=== PATIENT | female | born 1940 | race Caucasian/White ===

== ENCOUNTER 2018-02-02 09:29 | Day surgery (SDC) | payer MEDICARE ==
[2018-01-29 13:14] VITALS: BMI 26.4
[~2018-02-02 09:29] MED LIST: LACTATED RINGERS 1,000 ML IV SCH
[2018-02-02 10:06] VITALS: TEMP 97.7
[2018-02-02] MEDS ORDERED: LIDOCAINE 1% 20 ML VIAL (10MG/ML) FOR IV START INTRADERMA ONE (10:22)
[2018-02-02] MEDS ORDERED: LIDOCAINE 1% INJ 10MG/ML (20 ML MDV) ONE (11:07)
[2018-02-02] MEDS ORDERED: PROPOFOL 10 MG/ML 20 ML VIAL IV ONE (11:07)
--- NOTE | 2018-02-02 11:49 | P.PCN ---
Date of Procedure: 02/02/18 Procedure(s) Performed: Procedure: Colonoscopy and biopsy. Preoperative diagnosis: Screening for neoplasia. Postoperative diagnosis: 1. Sigmoid diverticulosis with no evidence of acute diverticulitis or strictures. 2. No polyps or tumors seen. 3. Mild nonspecific mucosal changes in the sigmoid biopsies obtained. Preparation: HalfLytely prep. Sedation: Was provided by anesthesia. Brief clinical history: The patient is a 78-year-old female who is scheduled for this evaluation for screening for neoplasia. Her last colonoscopy was in June 2013. 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 On her last colonoscopy she had sigmoid diverticulosis with no evidence of active inflammation in her colon and her biopsies from the right colon and sigmoid were normal. The patient is currently doing well and continues to be on Lialda 1.2 g 3 a day. Procedure: With the patient on her left lateral decubitus position and after informed consent and adequate sedation, the perianal area was inspected and it did not show any fissures or fistulas. There were no masses felt on digital rectal examination. The Olympus CFQ 160L video colonoscope was then inserted in the rectum in the usual fashion and advanced to the cecum. There were multiple diverticular orifices seen scattered in the sigmoid with no evidence of acute diverticulitis or strictures. The sigmoid distal to 45 or 50 cm showed erythema and friability but there were no ulcerations, exudation is or spontaneous bleeding. No polyps or tumors were seen. I obtained random biopsies in the sigmoid then I retroflexed the endoscope in the rectum before the endoscope was withdrawn. The patient tolerated the procedure well. Plan: The patient was reassured. She will follow-up in the office as planned and further plans will be made based on her course and biopsy results. Consideration will be given for futures screening for neoplasia based on her overall health. She will follow-up with you as planned.
[2018-02-02 12:03] VITALS: BP 120/76; PULSE 84; RESP 18
== END 2018-02-02 12:22 | disposition home or self-care (01) ==
LOC: ORWHC2ENDO 09:29
DX: Z12.11 Encounter for screening for malignant neoplasm of colon (principal); K52.9 Noninfective gastroenteritis and colitis, unspecified; K51.90 Ulcerative colitis, unspecified, without complications; I25.2 Old myocardial infarction; I25.10 Atherosclerotic heart disease of native coronary artery without angina pectoris; J44.9 Chronic obstructive pulmonary disease, unspecified; I11.9 Hypertensive heart disease without heart failure; K21.9 Gastro-esophageal reflux disease without esophagitis; K57.30 Diverticulosis of large intestine without perforation or abscess without bleeding; Z88.2 Allergy status to sulfonamides; Z88.8 Allergy status to other drugs, medicaments and biological substances; Z87.891 Personal history of nicotine dependence; Z79.82 Long term (current) use of aspirin; Z79.899 Other long term (current) drug therapy
CPT/HCPCS: 88305; 45380; J2001; J2704

== ENCOUNTER 2022-03-27 11:20 | Emergency (ER) | payer MEDICARE ==
[2022-03-27 12:08] VITALS: BP 123/67; PULSE 87; RESP 18; TEMP 97.7
[2022-03-27 12:36] LABS: Basophils % (A) 1 %; Eosinophils # (A) 0.6 k/uL (0-0.7); Eosinophils % (A) 10 %; HCT 36.6 % (34.0-46.0); HGB 11.6 gm/dL (11.4-16.0); Lymphocytes % (A) 16 %; MCH 31.4 pg (25.0-35.0); MCHC 31.7 g/dL (31.0-37.0); Macrocytosis Slight; Mean Platelet Volume 6.6; Monocytes # (A) 0.5 k/uL (0-1.0); Monocytes % (A) 7 %; Neutrophils # (A) 4.2 k/uL (1.3-7.7); Neutrophils % (A) 65 %; Platelet Count 718 k/uL (150-450); RBC 3.69 m/uL (3.80-5.40); RDW 14.9 % (11.5-15.5); WBC 6.5 k/uL (3.8-10.6)
[2022-03-27 12:45] LABS: ALT 15 U/L (4-34); AST 21 U/L (14-36); African American GFR (CKD) >90 (>60 ml/min/1.73 sqM); Albumin 3.3 g/dL (3.5-5.0); Alkaline Phosphatase 95 U/L (38-126); Anion Gap 5 mmol/L; Blood Urea Nitrogen 11 mg/dL (7-17); Calcium 8.2 mg/dL (8.4-10.2); Carbon Dioxide 30 mmol/L (22-30); Chloride 96 mmol/L (98-107); Glucose 119 mg/dL (74-99); Non-African American GFR(CKD) 82 (>60 ml/min/1.73 sqM); Potassium 4.2 mmol/L (3.5-5.1); Sodium 131 mmol/L (137-145); Total Bilirubin 0.6 mg/dL (0.2-1.3); Total Protein 6.1 g/dL (6.3-8.2)
[2022-03-27] MEDS ORDERED: SODIUM CHLORIDE 0.9% 1,000 ML IV STA (14:11)
[2022-03-27] MEDS ORDERED: ONDANSETRON 4 MG/2 ML VIAL IVP STA (14:11)
[2022-03-27] MEDS ORDERED: MORPHINE SULFATE 2 MG/ML SYRINGE IVP STA (14:11)
--- NOTE | 2022-03-27 15:10 | CT ---
EXAMINATION TYPE: CT abdomen pelvis w con DATE OF EXAM: 03/27/2022 COMPARISON: None available HISTORY: abdominal pain/tenderness CT DLP: 617.3 mGycm Automated exposure control for dose reduction was used. TECHNIQUE: Helical acquisition of images was performed from the lung bases through the pelvis. CONTRAST: Performed without Oral Contrast and with IV Contrast, patient injected with 100 mL of Isovue 300. FINDINGS: LUNG BASES: No significant abnormality is appreciated. LIVER/GB: Previous cholecystectomy. Dilated central intrahepatic biliary tree and CBD, probably relat ed to postcholecystectomy status, please correlate with bilirubin level. No definite suspicious hepat ic focal lesion identified. PANCREAS: No significant abnormality is seen. SPLEEN: No significant abnormality is seen. ADRENALS: No significant abnormality is seen. KIDNEYS: Scattered bilateral renal hypodensities likely representing renal cysts, otherwise unremarka ble kidneys. FREE AIR: No free air is visualized. RETROPERITONEAL ADENOPATHY: None visualized REPRODUCTIVE ORGANS: No gross uterine or adnexal mass. URINARY BLADDER: Nondistended. PELVIC ADENOPATHY: No pathologically enlarged pelvic lymph nodes. OSSEOUS STRUCTURES: Osteopenia. Degenerative changes of the lower thoracic and lower lumbar spine. BOWEL: Nondistended gastric fundus. Grossly unremarkable duodenum. Segments of mild nonspecific smal l bowel dilatation, seen in the pelvis. No convincing evidence for acute high-grade small bowel obstr uction. Diffuse wall thickening of the rectum, sigmoid colon and descending colon with surrounding fa t stranding and acute inflammatory changes. No significant wall thickening of the transverse colon or the right hemicolon. This may suggest acute colitis. Fecal loading of the transverse colon and right hemicolon. OTHER: Arterial atherosclerotic calcifications. No sizable ascites. Diffuse muscular wasting. IMPRESSION: Findings are highly suggestive of acute colitis of the descending colon, sigmoid colon and rectum as described above. The underlying etiology could be inflammatory, infectious or pseudomembranous. Ische marisela colitis cannot be excluded. Recommend clinical correlation and further workup. Other findings as described above.
[2022-03-27 15:12] LABS: INR 0.9 (<1.2); Prothrombin Time 10.1 sec (9.0-12.0)
[2022-03-27] MEDS ORDERED: AMOXIC-POT CLAV 875-125MG 1 EACH TAB PO STA (15:22)
--- NOTE | 2022-03-27 15:24 | ED ---
General Adult HPI - General Chief complaint: GI Bleed Stated complaint: colitis, blood in stool Time Seen by Provider: 03/27/22 13:57 Source: patient, RN notes reviewed, old records reviewed Mode of arrival: wheelchair Limitations: no limitations - History of Present Illness Initial comments: Patient is a 52-year-old female with past medical history remarkable for CAD, COPD, hypertension, MIs, chronic colitis who recently has been noncompliant with medication presents emergency Department complaining of intermittent blood in her stool as well as a small amount of abdominal pain which is typical for her colitis. States that there is small amount of bright red blood as well as dark blood in her stool. Last occurred yesterday. Symptoms have overall occurred over the last 2 weeks. She is been off her maintenance medication for her colitis. She is not follow-up with her GI doctor in quite some times. Last received a colonoscopy 1 years ago. Endorses mild nausea, but denies any vomiting. Denies any chest pain, shortness breath. His no other acute complaints at this time. Presents for further evaluation. Is not on blood thinners. - Related Data Home Medications Medication Instructions Recorded Confirmed Aspirin 81 mg PO HS 02/14/16 02/02/18 Budesonide-Formot 160-4.5 Mcg 2 puff INHALATION BID 02/14/16 02/02/18 [Symbicort 160-4.5 Mcg Inhaler] Famotidine [Pepcid] 20 mg PO DAILY PRN 02/14/16 02/02/18 Mesalamine [Lialda] 1.2 gm PO TID 02/14/16 02/02/18 carvediloL [Coreg] 3.125 mg PO BID 02/14/16 02/02/18 Albuterol Inhaler [Ventolin Hfa 1 - 2 puff INHALATION Q6HR PRN 01/29/18 02/02/18 Inhaler] Cholecalciferol [Vitamin D3] 1,000 unit PO Q24H 01/29/18 02/02/18 Glucosam/Kareem-Msm1/C/Rafael/Bosw 1 each PO Q24H 01/29/18 02/02/18 [Glucosamine-Chondroitin Tablet] Ipratropium-Albuterol Nebulize 3 ml INHALATION QID 01/29/18 02/02/18 [Duoneb 0.5 mg-3 mg/3 ml Soln] Losartan [Cozaar] 25 mg PO HS 01/29/18 02/02/18 [place]kee-3 Fatty Acids/Fish Oil [Fish 1 each PO HS PRN 01/29/18 02/02/18 Oil 1,000 mg Softgel] Simvastatin [Zocor] 20 mg PO HS 01/29/18 02/02/18 Previous Rx's Medication Instructions Recorded Amoxic-Pot Clav 875-125Mg 1 tab PO Q12HR 7 Days #14 tab 03/27/22 [Augmentin 875-125] Allergies Allergy/AdvReac Type Severity Reaction Status Date / Time niacin Allergy Itching Verified 03/27/22 12:08 Sulfa (Sulfonamide Allergy Anaphylaxis Verified 03/27/22 12:08 Antibiotics) diphenhydramine HCl AdvReac Itching Verified 03/27/22 12:08 [From Benadryl] Review of Systems ROS Statement: Those systems with pertinent positive or pertinent negative responses have been documented in the HPI. Review of Systems: CONST: Denies fever EYES: Denies blurry vision ENT: Denies nasal congestion C/V: Denies Chest pain RESP: Denies shortness of breath GI: Endorses chronic abdominal pain. : Denies dysuria SKIN: Denies rash. MSK: Denies joint pain. NEURO: Denies headache ROS Other: All systems not noted in ROS Statement are negative. Past Medical History Past Medical History: Coronary Artery Disease (CAD), COPD, GERD/Reflux, Hypertension, Myocardial Infarction (VT) Additional Past Medical History / Comment(s): CARDIOMYOPATHY. ULCERATIVE COLITIS Last Myocardial Infarction Date:: 07/12/2013 History of Any Multi-Drug Resistant Organisms: None Reported Past Surgical History: Appendectomy, Cholecystectomy, Heart Catheterization, Tonsillectomy, Tubal Ligation Additional Past Surgical History / Comment(s): COLONOSCOPY X3. BILAT CATARACTS REMOVED Past Anesthesia/Blood Transfusion Reactions: No Reported Reaction Past Psychological History: No Psychological Hx Reported Past Alcohol Use History: Occasional Past Drug Use History: None Reported - Past Family History Mother Family Medical History: Myocardial Infarction (VT) General Exam - General Exam Comments Initial Comments: General: Appears in no acute distress. HEAD: Normal with no signs of head trauma. EYES: PERRLA, EOMI, conjunctiva normal, no discharge. ENT: Hearing grossly intact, normal oropharynx. RESPIRATORY: Clear breath sounds bilaterally. No wheezes, rales, or rhonchi. C/V: Regular rate and rhythm. S1 and S2 auscultated, no edema, peripheral pulses 2+ and intact throughout ABD: Abdomen soft, nondistended. Mildly tender to palpation, primarily in the left lower quadrant. Rectal exam performed in the presence of a female staff member. Relatively unremarkable. No gross blood. Good rectal tone. Uncomplicated external hemorrhoid. EXT: Normal range of motion, no obvious deformity SKIN: No rashes or lesions observed on exposed skin. NEURO: Alert and oriented 4. Limitations: no limitations Course Vital Signs 03/27/22 12:03 Temperature 97.7 F Pulse Rate 87 Respiratory 18 Rate Blood Pressure 123/67 O2 Sat by Pulse 99 Oximetry Medical Decision Making - Medical Decision Making Based on the patient's presentation and physical exam, I do suspect she is likely experiencing acute on chronic abdominal pain from her history of colitis. Cannot rule out new cause for the pain, particularly with the focal tenderness to left lower quadrant. She is been noncompliant with medications which could be the cause. Workup was already started while the patient was in triage. Hemoglobin is 11.6. Platelet count is slightly elevated 718. She is a mild hyponatremia of 131 and hypochloremia 96. Troponin is undetectable. Occult blood was sent and is negative. I did discuss with her that I would like to obtain a computed tomography scan to rule out diverticulitis or other, acute factor, which she was in agreement with. She was given symptomatic treatment. CT imaging revealed her known colitis with no other complicating factor. I discussed with her at length this is likely secondary to her being noncompliant with her maintenance medications which she will restart. She has her prescription at home. As this was new in onset, she will be given antibiotics to rule out inflammatory cause, however has no other signs. Will be started on Augmentin. She was in agreement this plan. We'll follow up with her PCP. Also follow-up with GI. She would like to go home I think this is reasonable. Patient's vital signs remained within normal limits and stable throughout his stay. There is no sign of life-threatening bleed at this point. I believe she can go home without issue. She was in agreement this plan. I will provide the patient with a prescription for Augmentin. I instructed the patient to follow up with their PCP in the next 3 days. I explained that the patient should return to the emergency department if they experience any worsening symptoms. Strict return precautions were discussed with the patient. The patient expressed understanding of these instructions. I answered all questions that the patient had. The patient was discharged home in good condition with their prescriptions and follow up information. - Lab Data Result diagrams: 03/27/22 12:15 03/27/22 12:15 Lab Results 03/27/22 03/27/22 03/27/22 Range/Units 12:15 12:15 12:15 WBC 6.5 (3.8-10.6) k/uL RBC 3.69 L (3.80-5.40) m/uL Hgb 11.6 (11.4-16.0) gm/dL Hct 36.6 (34.0-46.0) % MCV 99.0 (80.0-100.0) fL MCH 31.4 (25.0-35.0) pg MCHC 31.7 (31.0-37.0) g/dL RDW 14.9 (11.5-15.5) % Plt Count 718 H (150-450) k/uL MPV 6.6 Neutrophils % 65 % Lymphocytes % 16 % Monocytes % 7 % Eosinophils % 10 % Basophils % 1 % Neutrophils # 4.2 (1.3-7.7) k/uL Lymphocytes # 1.0 (1.0-4.8) k/uL Monocytes # 0.5 (0-1.0) k/uL Eosinophils # 0.6 (0-0.7) k/uL Basophils # 0.0 (0-0.2) k/uL Macrocytosis Slight PT (9.0-12.0) sec INR (<1.2) APTT (22.0-30.0) sec Sodium 131 L (137-145) mmol/L Potassium 4.2 (3.5-5.1) mmol/L Chloride 96 L (98-107) mmol/L Carbon Dioxide 30 (22-30) mmol/L Anion Gap 5 mmol/L BUN 11 (7-17) mg/dL Creatinine 0.70 (0.52-1.04) mg/dL Est GFR (CKD-EPI)AfAm >90 (>60 ml/min/1.73 sqM) Est GFR (CKD-EPI)NonAf 82 (>60 ml/min/1.73 sqM) Glucose 119 H (74-99) mg/dL Calcium 8.2 L (8.4-10.2) mg/dL Total Bilirubin 0.6 (0.2-1.3) mg/dL AST 21 (14-36) U/L ALT 15 (4-34) U/L Alkaline Phosphatase 95 (38-126) U/L Troponin I <0.012 (0.000-0.034) ng/mL Total Protein 6.1 L (6.3-8.2) g/dL Albumin 3.3 L (3.5-5.0) g/dL Stool Occult Blood (Negative) 03/27/22 03/27/22 Range/Units 14:35 14:35 WBC (3.8-10.6) k/uL RBC (3.80-5.40) m/uL Hgb (11.4-16.0) gm/dL Hct (34.0-46.0) % MCV (80.0-100.0) fL MCH (25.0-35.0) pg MCHC (31.0-37.0) g/dL RDW (11.5-15.5) % Plt Count (150-450) k/uL MPV Neutrophils % % Lymphocytes % % Monocytes % % Eosinophils % % Basophils % % Neutrophils # (1.3-7.7) k/uL Lymphocytes # (1.0-4.8) k/uL Monocytes # (0-1.0) k/uL Eosinophils # (0-0.7) k/uL Basophils # (0-0.2) k/uL Macrocytosis PT 10.1 (9.0-12.0) sec INR 0.9 (<1.2) APTT 26.0 (22.0-30.0) sec Sodium (137-145) mmol/L Potassium (3.5-5.1) mmol/L Chloride (98-107) mmol/L Carbon Dioxide (22-30) mmol/L Anion Gap mmol/L BUN (7-17) mg/dL Creatinine (0.52-1.04) mg/dL Est GFR (CKD-EPI)AfAm (>60 ml/min/1.73 sqM) Est GFR (CKD-EPI)NonAf (>60 ml/min/1.73 sqM) Glucose (74-99) mg/dL Calcium (8.4-10.2) mg/dL Total Bilirubin (0.2-1.3) mg/dL AST (14-36) U/L ALT (4-34) U/L Alkaline Phosphatase (38-126) U/L Troponin I (0.000-0.034) ng/mL Total Protein (6.3-8.2) g/dL Albumin (3.5-5.0) g/dL Stool Occult Blood Negative (Negative) Disposition Clinical Impression: Colitis Disposition: HOME SELF-CARE Condition: Good Instructions (If sedation given, give patient instructions): Colitis (ED) Prescriptions: Amoxic-Pot Clav 875-125Mg [Augmentin 875-125] 1 tab PO Q12HR 7 Days #14 tab Is patient prescribed a controlled substance at d/c from ED?: No Referrals: Brittany Solis MD [Primary Care Provider] - 1-2 days Stephania Piedra MD [STAFF PHYSICIAN] - 1-2 days Time of Disposition: 15:20
== END 2022-03-27 16:00 | disposition home or self-care (01) ==
LOC: EC 11:20
DX: K52.9 Noninfective gastroenteritis and colitis, unspecified (principal); E87.1 Hypo-osmolality and hyponatremia; E87.8 Other disorders of electrolyte and fluid balance, not elsewhere classified; J44.9 Chronic obstructive pulmonary disease, unspecified; K21.9 Gastro-esophageal reflux disease without esophagitis; I10 Essential (primary) hypertension; I25.2 Old myocardial infarction; I25.10 Atherosclerotic heart disease of native coronary artery without angina pectoris; Z88.2 Allergy status to sulfonamides; Z88.8 Allergy status to other drugs, medicaments and biological substances; Z79.899 Other long term (current) drug therapy; Z79.51 Long term (current) use of inhaled steroids; Z79.82 Long term (current) use of aspirin
CPT/HCPCS: 36415; 80053; 84484; 85025; 85610; 85730; 82272; 74177; 99284; 96374; 96375; 96361; J2405; J2270; Q9967

== ENCOUNTER 2022-04-28 09:53 | Inpatient (IN) | payer MEDICARE ==
[2022-04-28] MEDS ORDERED: FAMOTIDINE 20 MG/2 ML VIAL IV STA (10:05)
--- NOTE | 2022-04-28 10:46 | ED ---
GI Bleed HPI - General Chief complaint: GI Bleed Stated complaint: vomiting, diarrhea Time Seen by Provider: 04/28/22 10:01 Source: patient, family, RN notes reviewed Mode of arrival: ambulatory Limitations: no limitations - History of Present Illness Initial comments: 82-year-old female who states she does have a history of colitis who states for about 4 week she's had intermittent episodes of blood per rectum last couple days she's had bright red blood per rectum. She does have lower abdominal discomfort crampy in nature she also has had nausea vomiting decreased oral intake. No overt fevers chills sweats. No dysuria no hematuria. She does feel lightheaded and dizzy when she gets up to walk. MD complaint: blood streaked stool, gross hematochezia - Related Data Home Medications Medication Instructions Recorded Confirmed Aspirin 81 mg PO HS 02/14/16 02/02/18 Budesonide-Formot 160-4.5 Mcg 2 puff INHALATION BID 02/14/16 02/02/18 [Symbicort 160-4.5 Mcg Inhaler] Famotidine [Pepcid] 20 mg PO DAILY PRN 02/14/16 02/02/18 Mesalamine [Lialda] 1.2 gm PO TID 02/14/16 02/02/18 carvediloL [Coreg] 3.125 mg PO BID 02/14/16 02/02/18 Albuterol Inhaler [Ventolin Hfa 1 - 2 puff INHALATION Q6HR PRN 01/29/18 02/02/18 Inhaler] Cholecalciferol [Vitamin D3] 1,000 unit PO Q24H 01/29/18 02/02/18 Glucosam/Kareem-Msm1/C/Rafael/Bosw 1 each PO Q24H 01/29/18 02/02/18 [Glucosamine-Chondroitin Tablet] Ipratropium-Albuterol Nebulize 3 ml INHALATION QID 01/29/18 02/02/18 [Duoneb 0.5 mg-3 mg/3 ml Soln] Losartan [Cozaar] 25 mg PO HS 01/29/18 02/02/18 [place]-3 Fatty Acids/Fish Oil [Fish 1 each PO HS PRN 01/29/18 02/02/18 Oil 1,000 mg Softgel] Simvastatin [Zocor] 20 mg PO HS 01/29/18 02/02/18 Previous Rx's Medication Instructions Recorded Amoxic-Pot Clav 875-125Mg 1 tab PO Q12HR 7 Days #14 tab 03/27/22 [Augmentin 875-125] Allergies Allergy/AdvReac Type Severity Reaction Status Date / Time niacin Allergy Itching Verified 04/28/22 09:58 Sulfa (Sulfonamide Allergy Anaphylaxis Verified 04/28/22 09:58 Antibiotics) diphenhydramine HCl AdvReac Itching Verified 04/28/22 09:58 [From Benadryl] Review of Systems ROS Statement: Those systems with pertinent positive or pertinent negative responses have been documented in the HPI. ROS Other: All systems not noted in ROS Statement are negative. Past Medical History Past Medical History: Coronary Artery Disease (CAD), COPD, GERD/Reflux, Hypertension, Myocardial Infarction ([place]) Additional Past Medical History / Comment(s): CARDIOMYOPATHY. ULCERATIVE COLITIS Last Myocardial Infarction Date:: 07/12/2013 History of Any Multi-Drug Resistant Organisms: None Reported Past Surgical History: Appendectomy, Cholecystectomy, Heart Catheterization, Tonsillectomy, Tubal Ligation Additional Past Surgical History / Comment(s): COLONOSCOPY X3. BILAT CATARACTS REMOVED Past Anesthesia/Blood Transfusion Reactions: No Reported Reaction Past Psychological History: No Psychological Hx Reported Smoking Status: Former smoker Past Alcohol Use History: Occasional Past Drug Use History: None Reported - Past Family History Mother Family Medical History: Myocardial Infarction ([place]) General Exam - General Exam Comments Initial Comments: This is a well-developed frail-appearing female who is awake alert oriented 4 Limitations: no limitations General appearance: alert, in no apparent distress Head exam: Present: atraumatic, normocephalic, normal inspection Eye exam: Present: normal appearance, PERRL, EOMI. Absent: scleral icterus, conjunctival injection, periorbital swelling ENT exam: Present: mucous membranes dry Neck exam: Present: normal inspection. Absent: tenderness, meningismus, lymphadenopathy Respiratory exam: Present: normal lung sounds bilaterally. Absent: respiratory distress, wheezes, rales, rhonchi, stridor Cardiovascular Exam: Present: regular rate, normal rhythm, normal heart sounds. Absent: systolic murmur, diastolic murmur, rubs, gallop, clicks GI/Abdominal exam: Present: soft, tenderness (Mild nonspecific tenderness to palpation no guarding rebound masses or bruits), normal bowel sounds. Absent: distended, guarding, rebound, rigid Rectal exam: Present: normal inspection, heme (+) stool ([place] colored blood on my glove during the rectal exam. No masses) Extremities exam: Present: normal inspection, full ROM, normal capillary refill. Absent: tenderness, pedal edema, joint swelling, calf tenderness Back exam: Present: normal inspection Neurological exam: Present: alert, oriented X3, CN II-XII intact Psychiatric exam: Present: normal affect, normal mood Skin exam: Present: warm, dry, intact, normal color. Absent: rash Course Vital Signs 04/28/22 04/28/22 04/28/22 09:55 11:50 14:00 Temperature 98.2 F Pulse Rate 94 80 67 Respiratory 18 18 18 Rate Blood Pressure 117/64 115/103 115/78 O2 Sat by Pulse 96 98 97 Oximetry - Reevaluation(s) Reevaluation #1: 04/28/22 15:21 I did discuss the findings with the patient and family members we did discuss options the patient prefer to stay in this facility if possible. I did discuss the case with Dr. Sierra who is agreed to accept the patient Medical Decision Making - Medical Decision Making Again I did discuss findings with the patient family patient will be admitted for IV hydration and assessment. IV antibiotics will be initiated. - Lab Data Result diagrams: 04/28/22 10:28 04/28/22 10:28 Lab Results 04/28/22 04/28/22 04/28/22 Range/Units 10:28 10:28 10:28 WBC 11.6 H (3.8-10.6) k/uL RBC 3.60 L (3.80-5.40) m/uL Hgb 11.1 L (11.4-16.0) gm/dL Hct 35.2 (34.0-46.0) % MCV 97.8 (80.0-100.0) fL MCH 31.0 (25.0-35.0) pg MCHC 31.7 (31.0-37.0) g/dL RDW 13.9 (11.5-15.5) % Plt Count 829 H (150-450) k/uL MPV 7.4 Neutrophils % (Manual) 63 % Band Neuts % (Manual) 23 % Lymphocytes % (Manual) 7 % Monocytes % (Manual) 9 % Neutrophils # (Manual) 9.90 H (1.3-7.7) k/uL Lymphocytes # (Manual) 0.81 L (1.0-4.8) k/uL Monocytes # (Manual) 1.04 H (0-1.0) k/uL Nucleated RBCs 0 (0-0) /100 WBC Manual Slide Review Performed Toxic Granulation Present Poikilocytosis (manual Present Anisocytosis (manual) Present PT 10.6 (9.0-12.0) sec INR 1.0 (<1.2) APTT 29.4 (22.0-30.0) sec Sodium (137-145) mmol/L Potassium (3.5-5.1) mmol/L Chloride (98-107) mmol/L Carbon Dioxide (22-30) mmol/L Anion Gap mmol/L BUN (7-17) mg/dL Creatinine (0.52-1.04) mg/dL Est GFR (CKD-EPI)AfAm (>60 ml/min/1.73 sqM) Est GFR (CKD-EPI)NonAf (>60 ml/min/1.73 sqM) Glucose (74-99) mg/dL Calcium (8.4-10.2) mg/dL Magnesium (1.6-2.3) mg/dL Total Bilirubin (0.2-1.3) mg/dL AST (14-36) U/L ALT (4-34) U/L Alkaline Phosphatase (38-126) U/L Troponin I (0.000-0.034) ng/mL Total Protein (6.3-8.2) g/dL Albumin (3.5-5.0) g/dL Lipase (23-300) U/L Stool Occult Blood Positive H (Negative) Blood Type Blood Type Confirm Blood Type Recheck Bld Type Recheck Status Antibody Screen Spec Expiration Date 04/28/22 04/28/22 04/28/22 Range/Units 10:28 10:28 10:31 WBC (3.8-10.6) k/uL RBC (3.80-5.40) m/uL Hgb (11.4-16.0) gm/dL Hct (34.0-46.0) % MCV (80.0-100.0) fL MCH (25.0-35.0) pg MCHC (31.0-37.0) g/dL RDW (11.5-15.5) % Plt Count (150-450) k/uL MPV Neutrophils % (Manual) % Band Neuts % (Manual) % Lymphocytes % (Manual) % Monocytes % (Manual) % Neutrophils # (Manual) (1.3-7.7) k/uL Lymphocytes # (Manual) (1.0-4.8) k/uL Monocytes # (Manual) (0-1.0) k/uL Nucleated RBCs (0-0) /100 WBC Manual Slide Review Toxic Granulation Poikilocytosis (manual Anisocytosis (manual) PT (9.0-12.0) sec INR (<1.2) APTT (22.0-30.0) sec Sodium 125 L (137-145) mmol/L Potassium 4.7 (3.5-5.1) mmol/L Chloride 91 L (98-107) mmol/L Carbon Dioxide 26 (22-30) mmol/L Anion Gap 8 mmol/L BUN 22 H (7-17) mg/dL Creatinine 1.24 H (0.52-1.04) mg/dL Est GFR (CKD-EPI)AfAm 47 (>60 ml/min/1.73 sqM) Est GFR (CKD-EPI)NonAf 41 (>60 ml/min/1.73 sqM) Glucose 108 H (74-99) mg/dL Calcium 8.6 (8.4-10.2) mg/dL Magnesium 1.7 (1.6-2.3) mg/dL Total Bilirubin 0.6 (0.2-1.3) mg/dL AST 16 (14-36) U/L ALT 11 (4-34) U/L Alkaline Phosphatase 124 (38-126) U/L Troponin I <0.012 (0.000-0.034) ng/mL Total Protein 5.7 L (6.3-8.2) g/dL Albumin 2.9 L (3.5-5.0) g/dL Lipase 19 L (23-300) U/L Stool Occult Blood (Negative) Blood Type O Positive Blood Type Confirm Blood Type Recheck No Previous Record Bld Type Recheck Status CABO Indicated Antibody Screen NEGATIVE Spec Expiration Date 05/01/2022 - 232704/28/22 Range/Units 10:36 WBC (3.8-10.6) k/uL RBC (3.80-5.40) m/uL Hgb (11.4-16.0) gm/dL Hct (34.0-46.0) % MCV (80.0-100.0) fL MCH (25.0-35.0) pg MCHC (31.0-37.0) g/dL RDW (11.5-15.5) % Plt Count (150-450) k/uL MPV Neutrophils % (Manual) % Band Neuts % (Manual) % Lymphocytes % (Manual) % Monocytes % (Manual) % Neutrophils # (Manual) (1.3-7.7) k/uL Lymphocytes # (Manual) (1.0-4.8) k/uL Monocytes # (Manual) (0-1.0) k/uL Nucleated RBCs (0-0) /100 WBC Manual Slide Review Toxic Granulation Poikilocytosis (manual Anisocytosis (manual) PT (9.0-12.0) sec INR (<1.2) APTT (22.0-30.0) sec Sodium (137-145) mmol/L Potassium (3.5-5.1) mmol/L Chloride (98-107) mmol/L Carbon Dioxide (22-30) mmol/L Anion Gap mmol/L BUN (7-17) mg/dL Creatinine (0.52-1.04) mg/dL Est GFR (CKD-EPI)AfAm (>60 ml/min/1.73 sqM) Est GFR (CKD-EPI)NonAf (>60 ml/min/1.73 sqM) Glucose (74-99) mg/dL Calcium (8.4-10.2) mg/dL Magnesium (1.6-2.3) mg/dL Total Bilirubin (0.2-1.3) mg/dL AST (14-36) U/L ALT (4-34) U/L Alkaline Phosphatase (38-126) U/L Troponin I (0.000-0.034) ng/mL Total Protein (6.3-8.2) g/dL Albumin (3.5-5.0) g/dL Lipase (23-300) U/L Stool Occult Blood (Negative) Blood Type Blood Type Confirm O Positive Blood Type Recheck Bld Type Recheck Status Antibody Screen Spec Expiration Date - Radiology Data Radiology results: report reviewed (Imaging reviewed as well as report evidence of colitis descending sigmoid and rectal area of the colon. Evidence of other lymphadenopathy.), image reviewed Disposition Clinical Impression: Colitis, Dehydration, Acute kidney injury, Blood per rectum Disposition: ADMITTED IP TO THIS [facility] Condition: Fair Referrals: Brittany Solis MD [Primary Care Provider] - 1-2 days Decision Date: 04/28/22 Decision Time: 15:24
[2022-04-28 10:56] LABS: Albumin 2.9 g/dL (3.5-5.0); Calcium 8.6 mg/dL (8.4-10.2); Magnesium 1.7 mg/dL (1.6-2.3); Potassium 4.7 mmol/L (3.5-5.1); Total Bilirubin 0.6 mg/dL (0.2-1.3); Total Protein 5.7 g/dL (6.3-8.2)
[2022-04-28 11:01] LABS: Partial Thromboplastin Time 29.4 sec (22.0-30.0); Prothrombin Time 10.6 sec (9.0-12.0)
[2022-04-28 11:07] LABS: HCT 35.2 % (34.0-46.0); HGB 11.1 gm/dL (11.4-16.0); MCHC 31.7 g/dL (31.0-37.0); MCV 97.8 fL (80.0-100.0); Mean Platelet Volume 7.4; Platelet Count 829 k/uL (150-450); RDW 13.9 % (11.5-15.5); WBC 11.6 k/uL (3.8-10.6)
[2022-04-28 11:39] LABS: Band Neutrophils % 23 %; Lymphocytes # (M) 0.81 k/uL (1.0-4.8); Monocytes # (M) 1.04 k/uL (0-1.0); Neutrophils % (M) 63 %; Nucleated Red Blood Cells 0 /100 WBC (0-0); Total Cells Counted 200
[2022-04-28 11:40] LABS: Toxic Granulation Present
[2022-04-28 11:41] LABS: Anisocytosis (M) Present; Poikilocytosis (M) Present
--- NOTE | 2022-04-28 14:01 | CT ---
EXAMINATION TYPE: CT abdomen pelvis wo con CT DLP: 355.3 mGycm, Automated exposure control for dose reduction was used. DATE OF EXAM: 04/28/2022 1:30 PM COMPARISON: CT abdomen pelvis most recent from 03/27/2022. CLINICAL INDICATION:Female, 82 years old with history of Developing, acute, nonlocalized; Lower abdom inal pain X 6 weeks TECHNIQUE: Standard CT of the abdomen and pelvis without IV or oral contrast. Lack of IV or oral co ntrast limits evaluation of solid and hollow organ viscera. Coronal and sagittal reformats were perfo rmed. FINDINGS: LOWER CHEST: Coronary artery calcifications. ABDOMEN LIVER: Unremarkable noncontrast appearance. GALLBLADDER AND BILE DUCTS: The gallbladder is surgically absent. No intrahepatic biliary ductal dila tation. Extrahepatic biliary duct dilatation which is not unexpected in the setting of cholecystectom y. PANCREAS: Unremarkable. SPLEEN: Unremarkable noncontrast appearance. ADRENAL GLANDS: Unremarkable. KIDNEYS AND URETERS: No evidence of hydronephrosis or renal calculus. The ureters are unremarkable. PELVIS BLADDER: Incompletely distended but grossly unremarkable. REPRODUCTIVE: Unremarkable. ABDOMEN & PELVIS STOMACH AND BOWEL: Small hiatal hernia, duodenum is unremarkable. Redemonstration of rectal wall thic kening or surrounding fat stranding. There is also suggested stranding involving the under distended sigmoid colon and descending colon. No evidence for fistula or pericolonic abscess. Colonic diverticu losis. No evidence of bowel obstruction. PERITONEUM: No evidence of pneumoperitoneum or free fluid. Pelvic floor laxity. VASCULATURE: Mild atherosclerotic calcifications are present throughout the abdominal aorta and its b ranches. No evidence of aortic aneurysm. MUSCULOSKELETAL: No acute osseous abnormalities. Remote left-sided rib fractures. Degenerative change s of the pubic symphysis and visualized spine. Grade 1 anterolisthesis of L4 on L5 without evidence o f pars defects. LYMPH NODES: Multiple new perirectal lymph nodes identified measuring up to 5 mm short axis with rey tional left internal and external iliac chain lymph nodes identified with largest measuring up to 1.3 cm (series 201, image 76). SOFT TISSUE/ABDOMINAL WALL: Mild diffuse anasarca. Small fat filled periumbilical hernia. IMPRESSION: Inflammatory changes involving the descending colon, sigmoid colon and rectum concerning for colitis without evidence of pericolonic abscess or pneumatosis. However there are new left iliac chain and pe rirectal lymph nodes identified. This may be reactive to colitis however colorectal malignancy with m etastasis is in the differential. Consider further evaluation with direct visualization and further w orkup.
[2022-04-28] MEDS ORDERED: NALOXONE 0.4 MG/ML 1 ML VIAL IV PRN (15:25)
[2022-04-28] MEDS: PIPERACILLIN-TAZOBACTAM 3.375 GM in SODIUM CHLORIDE 0.9% 100 ML IVPB SCH ×2 (17:20→23:43)
[2022-04-28] MEDS: SODIUM CHLORIDE 0.9% 1,000 ML IV SCH ×2 (17:20→23:43)
[2022-04-28] MEDS ORDERED: FUROSEMIDE 20 MG TAB PO PRN (17:25)
[2022-04-28] MEDS ORDERED: ALBUTEROL NEBULIZED 2.5 MG/3 ML INHALATION PRN (17:25)
[2022-04-28] MEDS ORDERED: BUDESONIDE 0.5 MG/2 ML NEBU INHALATION SCH (17:30)
[2022-04-28] MEDS: ALBUTEROL NEBULIZED 2.5 MG/3 ML INHALATION SCH (18:34)
[2022-04-28] MEDS: SYMBICORT 160-4.5 MCG INHALER INHALATION SCH (18:35)
[2022-04-28] MEDS: ONDANSETRON 4 MG/2 ML VIAL IVP PRN (19:45)
[2022-04-28] MEDS ORDERED: FAMOTIDINE 20 MG/2 ML VIAL IV SCH (21:00)
[2022-04-28] MEDS: BALSALAZIDE DISODIUM 750 MG CAPSULE PO SCH (21:05)
[2022-04-29 07:00] LABS: HCT 29.7 % (34.0-46.0); Hypochromasia Slight; MCHC 31.5 g/dL (31.0-37.0); MCV 98.4 fL (80.0-100.0); Platelet Count 672 k/uL (150-450); RBC 3.02 m/uL (3.80-5.40); WBC 7.7 k/uL (3.8-10.6)
[2022-04-29 07:02] LABS: HGB 9.3 gm/dL (11.4-16.0)
[2022-04-29 07:09] LABS: ALT 8 U/L (4-34); AST 18 U/L (14-36); African American GFR (CKD) 77 (>60 ml/min/1.73 sqM); Albumin 2.2 g/dL (3.5-5.0); Albumin/Globulin Ratio 0.9; Alkaline Phosphatase 100 U/L (38-126); Anion Gap 5 mmol/L; Blood Urea Nitrogen 15 mg/dL (7-17); Calcium 7.5 mg/dL (8.4-10.2); Carbon Dioxide 24 mmol/L (22-30); Chloride 99 mmol/L (98-107); Globulin 2.4 g/dL; Glucose 62 mg/dL (74-99); Non-African American GFR(CKD) 67 (>60 ml/min/1.73 sqM); Potassium 4.2 mmol/L (3.5-5.1); Sodium 128 mmol/L (137-145); Total Bilirubin 0.4 mg/dL (0.2-1.3); Total Protein 4.6 g/dL (6.3-8.2)
[2022-04-29] MEDS: ALBUTEROL NEBULIZED 2.5 MG/3 ML INHALATION SCH ×4 (08:25→20:15)
[2022-04-29] MEDS: ASPIRIN 81 MG PO SCH (08:54)
[2022-04-29] MEDS: MULTIVITAMINS, THERA 1 EACH TAB PO SCH (08:54)
[2022-04-29] MEDS: FAMOTIDINE 20 MG/2 ML VIAL IV SCH (08:54)
[2022-04-29] MEDS: ATORVASTATIN 10 MG TAB PO SCH (08:54)
[2022-04-29] MEDS: CHOLECALCIFEROL 25 MCG (1000 IU) TABLET PO SCH (08:54)
[2022-04-29] MEDS: BALSALAZIDE DISODIUM 750 MG CAPSULE PO SCH ×3 (08:54→22:02)
[2022-04-29] MEDS: ASCORBIC ACID 500 MG TAB PO SCH (08:54)
[2022-04-29] MEDS: LOSARTAN 25 MG TAB PO SCH (08:54)
[2022-04-29] MEDS: PIPERACILLIN-TAZOBACTAM 3.375 GM in SODIUM CHLORIDE 0.9% 100 ML IVPB SCH ×3 (08:57→23:36)
[2022-04-29] MEDS: SODIUM CHLORIDE 0.9% 1,000 ML IV SCH ×4 (08:57→23:39)
[2022-04-29] MEDS ORDERED: NON FORMULARY DRUG (Glucosam/Chon-Msm1/C/Mang/Bosw [Glucosamine-Chondroitin Tablet] 1 EACH PO SCH (09:00)
[2022-04-29 09:57] LABS: Band Neutrophils % 3 %; Lymphocytes # (M) 0.92 k/uL (1.0-4.8); Monocytes # (M) 0.85 k/uL (0-1.0); Neutrophils % (M) 74 %; Nucleated Red Blood Cells 0 /100 WBC (0-0); Total Cells Counted 100
[2022-04-29] MEDS: SYMBICORT 160-4.5 MCG INHALER INHALATION SCH ×2 (11:58→20:39)
--- NOTE | 2022-04-29 16:14 | P.GSCN ---
History of Present Illness Consult date: 04/29/22 History of present illness: Patient seen and evaluated. Last colonoscopy over 2 years ago. Patient's pre- existing colitis. Recommend repeat colonoscopy with biopsies due to progressive colitis in the past 4 weeks despite medications. She denies abdominal pain. She reports stools are now more brown in appearance. She reports unintentional weight loss. She reports weakness. Past Medical History Past Medical History: Coronary Artery Disease (CAD), COPD, GERD/Reflux, Hypertension, Myocardial Infarction ([place]) Additional Past Medical History / Comment(s): CARDIOMYOPATHY. ULCERATIVE COLITIS Last Myocardial Infarction Date:: 07/12/2013 History of Any Multi-Drug Resistant Organisms: None Reported Past Surgical History: Appendectomy, Cholecystectomy, Heart Catheterization, Tonsillectomy, Tubal Ligation Additional Past Surgical History / Comment(s): COLONOSCOPY X3. BILAT CATARACTS REMOVED Past Anesthesia/Blood Transfusion Reactions: No Reported Reaction Past Psychological History: No Psychological Hx Reported Smoking Status: Former smoker Past Alcohol Use History: Occasional Past Drug Use History: None Reported - Past Family History Mother Family Medical History: Myocardial Infarction ([place]) Additional Family Medical History / Comment(s): at 74 years old Father Family Medical History: Myocardial Infarction ([place]) Additional Family Medical History / Comment(s): at 82 years Medications and Allergies Home Medications Medication Instructions Recorded Confirmed Type Aspirin 81 mg PO DAILY 02/14/16 04/28/22 History Budesonide-Formot 160-4.5 Mcg 2 puff INHALATION RT-BID 02/14/16 04/28/22 History [Symbicort 160-4.5 Mcg Inhaler] Mesalamine [Lialda] 1.2 gm PO TID 02/14/16 04/28/22 History Albuterol Inhaler [Ventolin Hfa 2 puff INHALATION RT-QID PRN 01/29/18 04/28/22 History Inhaler] Glucosam/Kareem-Msm1/C/Rafael/Bosw 1 tab PO DAILY 01/29/18 04/28/22 History [Glucosamine-Chondroitin Tablet] Losartan [Cozaar] 25 mg PO DAILY 01/29/18 04/28/22 History Simvastatin [Zocor] 20 mg PO DAILY 01/29/18 04/28/22 History Albuterol Nebulized [Ventolin 2.5 mg INHALATION RT-QID 04/28/22 04/28/22 History Nebulized] Ascorbic Acid [Vitamin C] 1,000 mg PO DAILY 04/28/22 04/28/22 History Cholecalciferol [Vitamin D3 (25 25 mcg PO DAILY 04/28/22 04/28/22 History Mcg = 1000 Iu)] Furosemide [Lasix] 20 mg PO DAILY PRN 04/28/22 04/28/22 History Multivit with Calcium,Iron,Min 1 tab PO DAILY 04/28/22 04/28/22 History [Women's Multivitamin] Allergies Allergy/AdvReac Type Severity Reaction Status Date / Time niacin Allergy Itching Verified 04/28/22 09:58 Sulfa (Sulfonamide Allergy Anaphylaxis Verified 04/28/22 09:58 Antibiotics) diphenhydramine HCl AdvReac Itching Verified 04/28/22 09:58 [From Benadcristhianl] Surgical - Exam Vital Signs Temp Pulse Resp BP Pulse Ox 98.2 F 94 18 117/64 96 04/28/22 09:55 04/28/22 09:55 04/28/22 09:55 04/28/22 09:55 04/28/22 09:55 Results - Labs 04/29/22 06:12 04/29/22 06:12 Abnormal Lab Results - Last 24 Hours (Table) 04/29/22 04/29/22 Range/Units 06:12 06:12 RBC 3.02 L (3.80-5.40) m/uL Hgb 9.3 L D (11.4-16.0) gm/dL Hct 29.7 L (34.0-46.0) % Plt Count 672 H (150-450) k/uL Lymphocytes # (Manual) 0.92 L (1.0-4.8) k/uL Sodium 128 L (137-145) mmol/L Glucose 62 L (74-99) mg/dL Calcium 7.5 L (8.4-10.2) mg/dL Total Protein 4.6 L (6.3-8.2) g/dL Albumin 2.2 L (3.5-5.0) g/dL Diabetes panel 04/29/22 Range/Units 06:12 Sodium 128 L (137-145) mmol/L Potassium 4.2 (3.5-5.1) mmol/L Chloride 99 (98-107) mmol/L Carbon Dioxide 24 (22-30) mmol/L BUN 15 (7-17) mg/dL Creatinine 0.83 (0.52-1.04) mg/dL Glucose 62 L (74-99) mg/dL Calcium 7.5 L (8.4-10.2) mg/dL AST 18 (14-36) U/L ALT 8 (4-34) U/L Alkaline Phosphatase 100 (38-126) U/L Total Protein 4.6 L (6.3-8.2) g/dL Albumin 2.2 L (3.5-5.0) g/dL Calcium panel 04/29/22 Range/Units 06:12 Calcium 7.5 L (8.4-10.2) mg/dL Albumin 2.2 L (3.5-5.0) g/dL Pituitary panel 04/29/22 Range/Units 06:12 Sodium 128 L (137-145) mmol/L Potassium 4.2 (3.5-5.1) mmol/L Chloride 99 (98-107) mmol/L Carbon Dioxide 24 (22-30) mmol/L BUN 15 (7-17) mg/dL Creatinine 0.83 (0.52-1.04) mg/dL Glucose 62 L (74-99) mg/dL Calcium 7.5 L (8.4-10.2) mg/dL Adrenal panel 04/29/22 Range/Units 06:12 Sodium 128 L (137-145) mmol/L Potassium 4.2 (3.5-5.1) mmol/L Chloride 99 (98-107) mmol/L Carbon Dioxide 24 (22-30) mmol/L BUN 15 (7-17) mg/dL Creatinine 0.83 (0.52-1.04) mg/dL Glucose 62 L (74-99) mg/dL Calcium 7.5 L (8.4-10.2) mg/dL Total Bilirubin 0.4 (0.2-1.3) mg/dL AST 18 (14-36) U/L ALT 8 (4-34) U/L Alkaline Phosphatase 100 (38-126) U/L Total Protein 4.6 L (6.3-8.2) g/dL Albumin 2.2 L (3.5-5.0) g/dL
[2022-04-29] MEDS ORDERED: ACETAMINOPHEN TAB 325 MG TAB PO PRN (16:52)
[2022-04-29 20:09] VITALS: RESP 16
[2022-04-29] MEDS ORDERED: SODIUM CHLORIDE 0.9% 1,000 ML IV STA (20:09)
--- NOTE | 2022-04-29 20:10 | P.HPIM ---
History of Present Illness H&P Date: 04/28/22 Marilyn Jalloh, is an 82-year-old female who presented to [facility] with a chief complaint of rectal bleeding. Patient stated that for the last 4 weeks she had episodes of bright red blood per rectum on and off she started having some abdominal discomfort and nausea and vomiting and decided to come to emergency room. She was evaluated in the emergency room vital examination on presentation revealed a temperature of 98.2 pulse 94 respiration 18 blood pressure 117/64 pulse ox 96% on room air Laboratory data revealed a white blood count of 11.6 hemoglobin 11.1 platelet count 829 sodium 125 potassium 4.7 chloride 91 CO2 26 BUN 22 creatinine 1.4 Testing in the emergency room revealed computed tomography scan of the abdomen and pelvis done in the emergency room revealed inflammatory changes involving the descending colon sigmoid colon and rectum concerning for colitis without evidence of pericolonic abscess or pneumatosis, there was also enlarged lymph nodes, patient was started on IV antibiotic Zosyn in the emergency room, surgical consultation was requested for possible colonoscopy Patient was admitted to medical floor for further evaluation and treatment Past Medical History Past Medical History: Coronary Artery Disease (CAD), COPD, GERD/Reflux, Hypertension, Myocardial Infarction ([place]) Additional Past Medical History / Comment(s): CARDIOMYOPATHY. ULCERATIVE COLITIS Last Myocardial Infarction Date:: 07/12/2013 History of Any Multi-Drug Resistant Organisms: None Reported Past Surgical History: Appendectomy, Cholecystectomy, Heart Catheterization, Tonsillectomy, Tubal Ligation Additional Past Surgical History / Comment(s): COLONOSCOPY X3. BILAT CATARACTS REMOVED Past Anesthesia/Blood Transfusion Reactions: No Reported Reaction Past Psychological History: No Psychological Hx Reported Smoking Status: Former smoker Past Alcohol Use History: Occasional Past Drug Use History: None Reported - Past Family History Mother Family Medical History: Myocardial Infarction ([place]) Father Family Medical History: Myocardial Infarction ([place]) Additional Family Medical History / Comment(s): at 82 years Medications and Allergies Home Medications Medication Instructions Recorded Confirmed Type Aspirin 81 mg PO DAILY 02/14/16 04/28/22 History Budesonide-Formot 160-4.5 Mcg 2 puff INHALATION RT-BID 02/14/16 04/28/22 History [Symbicort 160-4.5 Mcg Inhaler] Mesalamine [Lialda] 1.2 gm PO TID 02/14/16 04/28/22 History Albuterol Inhaler [Ventolin Hfa 2 puff INHALATION RT-QID PRN 01/29/18 04/28/22 History Inhaler] Glucosam/Kareem-Msm1/C/Rafael/Bosw 1 tab PO DAILY 01/29/18 04/28/22 History [Glucosamine-Chondroitin Tablet] Losartan [Cozaar] 25 mg PO DAILY 01/29/18 04/28/22 History Simvastatin [Zocor] 20 mg PO DAILY 01/29/18 04/28/22 History Albuterol Nebulized [Ventolin 2.5 mg INHALATION RT-QID 04/28/22 04/28/22 History Nebulized] Ascorbic Acid [Vitamin C] 1,000 mg PO DAILY 04/28/22 04/28/22 History Cholecalciferol [Vitamin D3 (25 25 mcg PO DAILY 04/28/22 04/28/22 History Mcg = 1000 Iu)] Furosemide [Lasix] 20 mg PO DAILY PRN 04/28/22 04/28/22 History Multivit with Calcium,Iron,Min 1 tab PO DAILY 04/28/22 04/28/22 History [Women's Multivitamin] Allergies Allergy/AdvReac Type Severity Reaction Status Date / Time niacin Allergy Itching Verified 04/28/22 09:58 Sulfa (Sulfonamide Allergy Anaphylaxis Verified 04/28/22 09:58 Antibiotics) diphenhydramine HCl AdvReac Itching Verified 04/28/22 09:58 [[facility]] Physical Exam Vitals: Vital Signs Temp Pulse Pulse Resp BP BP Pulse Ox 04/28/22 17:13 98.1 F 90 22 123/89 96 04/28/22 16:00 98 F 82 16 129/78 97 04/28/22 14:00 67 18 115/78 97 04/28/22 11:50 80 18 115/103 98 04/28/22 09:55 98.2 F 94 18 117/64 96 Intake and Output 04/28/22 04/28/22 04/28/22 06:59 14:59 22:59 Other: Weight 52.163 kg In general patient is alert and oriented x 3 in no distress HEENT head normocephalic and atraumatic Neck is supple no JVD no goiter no lymphadenopathy no carotid bruit Chest examination is clear to auscultation no crackles no wheezing Cardiac exam reveals regular heart sounds S1 and S2 no gallops no murmurs Abdomen is soft nontender no organomegaly with normal bowel sounds Extremity exam reveals no edema no cyanosis or clubbing Neurological examination reveals no gross focal deficits Results CBC & Chem 7: 04/29/22 06:12 04/29/22 06:12 Labs: Abnormal Lab Results - Last 24 Hours (Table) 04/28/22 04/28/22 04/28/22 Range/Units 10:28 10:28 10:28 WBC 11.6 H (3.8-10.6) k/uL RBC 3.60 L (3.80-5.40) m/uL Hgb 11.1 L (11.4-16.0) gm/dL Plt Count 829 H (150-450) k/uL Neutrophils # (Manual) 9.90 H (1.3-7.7) k/uL Lymphocytes # (Manual) 0.81 L (1.0-4.8) k/uL Monocytes # (Manual) 1.04 H (0-1.0) k/uL Sodium 125 L (137-145) mmol/L Chloride 91 L (98-107) mmol/L BUN 22 H (7-17) mg/dL Creatinine 1.24 H (0.52-1.04) mg/dL Glucose 108 H (74-99) mg/dL Total Protein 5.7 L (6.3-8.2) g/dL Albumin 2.9 L (3.5-5.0) g/dL Lipase 19 L (23-300) U/L Stool Occult Blood Positive H (Negative) Assessment and Plan Plan: Rectal bleeding Evidence of colitis on computed tomography scan, malignancy could not be ruled out Previous history of colitis diagnosed in 2018 on colonoscopy and biopsy, patient has been maintained on Lialda Leukocytosis on presentation Hyponatremia with sodium of 125 on presentation Dehydration with acute kidney injury with elevated BUN and creatinine on presentation Underlying history of hypertension Underlying history of hyperlipidemia Underlying history of chronic obstructive pulmonary disease Previous history of smoking At this time patient is admitted to medical floor Surgical consultation requested for possible colonoscopy, gastroenterology is not available this week for hospital consult Home medications reviewed and reordered For DVT prophylaxis avoid anticoagulation and use SCD stockings due to rectal bleeding Consult nephrology in regard to severe hyponatremia, continue was normal saline at 75 mL an hour Recheck labs in a.m. Will follow closely
--- NOTE | 2022-04-29 20:13 | P.PN ---
Subjective Progress Note Date: 04/29/22 Marilyn Jalloh, is an 82-year-old female who presented to [facility] with a chief complaint of rectal bleeding. Patient stated that for the last 4 weeks she had episodes of bright red blood per rectum on and off she started having some abdominal discomfort and nausea and vomiting and decided to come to emergency room. She was evaluated in the emergency room vital examination on presentation revealed a temperature of 98.2 pulse 94 respiration 18 blood pressure 117/64 pulse ox 96% on room air Laboratory data revealed a white blood count of 11.6 hemoglobin 11.1 platelet count 829 sodium 125 potassium 4.7 chloride 91 CO2 26 BUN 22 creatinine 1.4 Testing in the emergency room revealed computed tomography scan of the abdomen and pelvis done in the emergency room revealed inflammatory changes involving the descending colon sigmoid colon and rectum concerning for colitis without evidence of pericolonic abscess or pneumatosis, there was also enlarged lymph nodes, patient was started on IV antibiotic Zosyn in the emergency room, surgical consultation was requested for possible colonoscopy Patient was admitted to medical floor for further evaluation and treatment On 04/29/2022 patient was seen and examined on the medical floor she is alert and oriented in no apparent distress there is no fever or chills no headache or dizziness no chest pain or shortness of breath no cough no nausea or vomiting no abdominal pain no diarrhea no burning with urination no frequency or urgency and no hematuria, patient was seen by Dr. Stacy, at this time will continue with current medications, will monitor hemoglobin and sodium level closely Objective - Vital Signs Vital signs: Vital Signs Temp 98.5 F 04/29/22 20:06 Pulse 90 04/29/22 20:06 Resp 16 04/29/22 20:06 BP 103/68 04/29/22 20:06 Pulse Ox 96 04/29/22 20:06 FiO2 Intake & Output 04/29/22 04/29/22 04/30/22 06:59 18:59 06:59 Intake Total 240 Balance 240 Intake: Oral 240 Other: # Voids 2 5 # Bowel Movements 4 5 - Exam In general patient is alert and oriented x 3 in no distress HEENT head normocephalic and atraumatic Neck is supple no JVD no goiter no lymphadenopathy no carotid bruit Chest examination is clear to auscultation no crackles no wheezing Cardiac exam reveals regular heart sounds S1 and S2 no gallops no murmurs Abdomen is soft nontender no organomegaly with normal bowel sounds Extremity exam reveals no edema no cyanosis or clubbing Neurological examination reveals no gross focal deficits - Labs CBC & Chem 7: 04/29/22 06:12 04/29/22 06:12 Labs: Abnormal Lab Results - Last 24 Hours (Table) 04/29/22 04/29/22 Range/Units 06:12 06:12 RBC 3.02 L (3.80-5.40) m/uL Hgb 9.3 L D (11.4-16.0) gm/dL Hct 29.7 L (34.0-46.0) % Plt Count 672 H (150-450) k/uL Lymphocytes # (Manual) 0.92 L (1.0-4.8) k/uL Sodium 128 L (137-145) mmol/L Glucose 62 L (74-99) mg/dL Calcium 7.5 L (8.4-10.2) mg/dL Total Protein 4.6 L (6.3-8.2) g/dL Albumin 2.2 L (3.5-5.0) g/dL Assessment and Plan Plan: Rectal bleeding Evidence of colitis on computed tomography scan, malignancy could not be ruled out Previous history of colitis diagnosed in 2018 on colonoscopy and biopsy, patient has been maintained on Lialda Leukocytosis on presentation Hyponatremia with sodium of 125 on presentation Dehydration with acute kidney injury with elevated BUN and creatinine on presentation Underlying history of hypertension Underlying history of hyperlipidemia Underlying history of chronic obstructive pulmonary disease Previous history of smoking At this time patient is admitted to medical floor Surgical consultation requested for possible colonoscopy, gastroenterology is not available this week for hospital consult Home medications reviewed and reordered For DVT prophylaxis avoid anticoagulation and use SCD stockings due to rectal bleeding Consult nephrology in regard to severe hyponatremia, continue was normal saline at 75 mL an hour Recheck labs in a.m. Will follow closely
[2022-04-30] MEDS: SYMBICORT 160-4.5 MCG INHALER INHALATION SCH ×2 (07:30→19:34)
[2022-04-30] MEDS: ALBUTEROL NEBULIZED 2.5 MG/3 ML INHALATION SCH ×4 (07:30→19:34)
[2022-04-30] MEDS ORDERED: PEG 3350 (236 GM/BTL) + LYTES 4,000 ML BOTTLE PO ONE (08:00)
[2022-04-30 09:04] LABS: HCT 28.8 % (37.2-46.3); HGB 8.8 g/dL (12.0-15.0); MCHC 30.6 g/dL (32.0-37.0); Mean Platelet Volume 8.4 fL (9.5-12.2); NRBC Per 100 WBC 0 /100 WBCS (0.0-0.0); Platelet Count 596 X 10*3/uL (140-440); RBC 3.03 X 10*6/uL (4.10-5.20); RDW 14.4 % (11.5-14.5); WBC 4.97 X 10*3/uL (4.50-10.00)
[2022-04-30] MEDS: FAMOTIDINE 20 MG/2 ML VIAL IV SCH (09:06)
[2022-04-30] MEDS: ONDANSETRON 4 MG/2 ML VIAL IVP PRN (09:06)
[2022-04-30] MEDS: ASPIRIN 81 MG PO SCH (09:07)
[2022-04-30] MEDS: ATORVASTATIN 10 MG TAB PO SCH (09:07)
[2022-04-30] MEDS: LOSARTAN 25 MG TAB PO SCH (09:07)
[2022-04-30] MEDS: MULTIVITAMINS, THERA 1 EACH TAB PO SCH (09:07)
[2022-04-30] MEDS: CHOLECALCIFEROL 25 MCG (1000 IU) TABLET PO SCH (09:07)
[2022-04-30] MEDS: BALSALAZIDE DISODIUM 750 MG CAPSULE PO SCH ×2 (09:09→16:25)
[2022-04-30] MEDS: ASCORBIC ACID 500 MG TAB PO SCH ×2 (09:09→09:10)
[2022-04-30] MEDS: PIPERACILLIN-TAZOBACTAM 3.375 GM in SODIUM CHLORIDE 0.9% 100 ML IVPB SCH ×2 (09:11→16:25)
[2022-04-30 09:14] LABS: ALT 10 U/L (8-44); AST 11 U/L (13-35); African American GFR (CKD) 105.9 (60.0-200.0); Albumin 2.3 g/dL (3.8-4.9); Albumin/Globulin Ratio 1.15 (1.60-3.17); Alkaline Phosphatase 88 U/L (41-126); Blood Urea Nitrogen 7.8 mg/dL (9.0-27.0); Calcium 7.5 mg/dL (8.7-10.3); Carbon Dioxide 25.5 mmol/L (20.0-27.5); Chloride 102 mmol/L (96-109); Glucose 73 mg/dL (70-110); Non-African American GFR(CKD) 91.4 (60.0-200.0); Potassium 3.6 mmol/L (3.5-5.5); Sodium 135 mmol/L (135-145); Total Bilirubin <0.15 mg/dL (0.30-1.20); Total Protein 4.3 g/dL (6.2-8.2)
--- NOTE | 2022-04-30 09:36 | P.PN ---
Subjective Progress Note Date: 04/30/22 Patient reports tolerating chicken pot pie yesterday for dinner last night. Patient reports formed brown stool. Due to recurrent colitis, we'll proceed with colonoscopy. Recommend start colonoscopy present at 8 AM to allow full clearance of bowel tract. Clear liquid diet today. Nothing by mouth after midnight. Objective - Vital Signs Vital signs: Vital Signs Temp 98.2 F 04/30/22 05:00 Pulse 94 04/30/22 07:41 Resp 16 04/30/22 05:00 BP 114/61 04/30/22 05:00 Pulse Ox 94 L 04/30/22 07:30 FiO2 Intake & Output 04/29/22 04/30/22 04/30/22 18:59 06:59 18:59 Other: # Voids 5 3 # Bowel Movements 5 2 - Labs CBC & Chem 7: 04/30/22 04:28 04/30/22 04:28 Labs: Abnormal Lab Results - Last 24 Hours (Table) 04/29/22 04/30/22 04/30/22 Range/Units 06:12 04:28 04:28 RBC 3.03 L (4.10-5.20) X 10*6/uL Hgb 8.8 L (12.0-15.0) g/dL Hct 28.8 L (37.2-46.3) % MCHC 30.6 L (32.0-37.0) g/dL Plt Count 596 H (140-440) X 10*3/uL MPV 8.4 L (9.5-12.2) fL Lymphocytes # (Manual) 0.92 L (1.0-4.8) k/uL Anion Gap 7.50 L (10.00-18.00) mmol/L BUN 7.8 L (9.0-27.0) mg/dL Creatinine 0.5 L (0.6-1.5) mg/dL Calcium 7.5 L (8.7-10.3) mg/dL Total Bilirubin <0.15 L (0.30-1.20) mg/dL AST 11 L (13-35) U/L Total Protein 4.3 L (6.2-8.2) g/dL Albumin 2.3 L (3.8-4.9) g/dL Albumin/Globulin Ratio 1.15 L (1.60-3.17) g/dL
[2022-04-30 10:57] LABS: Basophils # (A) 0.04 X 10*3/uL (0.00-0.10); Basophils % (A) 0.8 %; Eosinophils # (A) 0.06 X 10*3/uL (0.04-0.35); Eosinophils % (A) 1.2 %; Immature Grans, Automated 1.6 %; Lymphocytes # (A) 0.77 X 10*3/uL (0.90-5.00); Lymphocytes % (A) 15.5 %; Monocytes # (A) 0.94 X 10*3/uL (0.20-1.00); Monocytes % (A) 18.9 %; Neutrophils # (A) 3.08 X 10*3/uL (1.80-7.70)
[2022-04-30] MEDS: SODIUM CHLORIDE 0.9% 1,000 ML IV SCH (16:25)
--- NOTE | 2022-04-30 17:10 | P.PN ---
Subjective Progress Note Date: 04/30/22 Marilyn Jalloh, is an 82-year-old female who presented to [facility] with a chief complaint of rectal bleeding. Patient stated that for the last 4 weeks she had episodes of bright red blood per rectum on and off she started having some abdominal discomfort and nausea and vomiting and decided to come to emergency room. She was evaluated in the emergency room vital examination on presentation revealed a temperature of 98.2 pulse 94 respiration 18 blood pressure 117/64 pulse ox 96% on room air Laboratory data revealed a white blood count of 11.6 hemoglobin 11.1 platelet count 829 sodium 125 potassium 4.7 chloride 91 CO2 26 BUN 22 creatinine 1.4 Testing in the emergency room revealed computed tomography scan of the abdomen and pelvis done in the emergency room revealed inflammatory changes involving the descending colon sigmoid colon and rectum concerning for colitis without evidence of pericolonic abscess or pneumatosis, there was also enlarged lymph nodes, patient was started on IV antibiotic Zosyn in the emergency room, surgical consultation was requested for possible colonoscopy Patient was admitted to medical floor for further evaluation and treatment On 04/29/2022 patient was seen and examined on the medical floor she is alert and oriented in no apparent distress there is no fever or chills no headache or dizziness no chest pain or shortness of breath no cough no nausea or vomiting no abdominal pain no diarrhea no burning with urination no frequency or urgency and no hematuria, patient was seen by Dr. Satcy, at this time will continue with current medications, will monitor hemoglobin and sodium level closely On 04/30/2022 patient was seen and examined on the medical floor she is alert and oriented 3 in no apparent distress his having abdominal cramping at this time she is taking GoLYTELY in preparation for colonoscopy otherwise she denies any complaints there is no fever or chills no headache or dizziness no chest pain no shortness of breath no cough no nausea or vomiting no abdominal pain no diarrhea and no urinary symptoms kidney function improved BUN was 22 and creatinine 1.24 on presentation currently BUN is 7.8 and creatinine 0.5 sodium was 125 on presentation and currently sodium is 135 will continue was current management awaiting colonoscopy results tomorrow Objective - Vital Signs Vital signs: Vital Signs Temp 98.2 F 04/30/22 11:16 Pulse 92 04/30/22 11:23 Resp 16 04/30/22 11:16 BP 116/78 04/30/22 11:16 Pulse Ox 93 L 04/30/22 11:16 FiO2 Intake & Output 04/29/22 04/30/22 04/30/22 18:59 06:59 18:59 Other: # Voids 5 3 # Bowel Movements 5 2 - Exam In general patient is alert and oriented x 3 in no distress HEENT head normocephalic and atraumatic Neck is supple no JVD no goiter no lymphadenopathy no carotid bruit Chest examination is clear to auscultation no crackles no wheezing Cardiac exam reveals regular heart sounds S1 and S2 no gallops no murmurs Abdomen is soft nontender no organomegaly with normal bowel sounds Extremity exam reveals no edema no cyanosis or clubbing Neurological examination reveals no gross focal deficits - Labs CBC & Chem 7: 04/30/22 04:28 04/30/22 04:28 Labs: Abnormal Lab Results - Last 24 Hours (Table) 04/30/22 04/30/22 Range/Units 04:28 04:28 RBC 3.03 L (4.10-5.20) X 10*6/uL Hgb 8.8 L (12.0-15.0) g/dL Hct 28.8 L (37.2-46.3) % MCHC 30.6 L (32.0-37.0) g/dL Plt Count 596 H (140-440) X 10*3/uL Plt Count Comment INCREASED A MPV 8.4 L (9.5-12.2) fL Immature Gran # 0.08 H (0.00-0.04) X 10*3/uL Lymphocytes # 0.77 L (0.90-5.00) X 10*3/uL Anion Gap 7.50 L (10.00-18.00) mmol/L BUN 7.8 L (9.0-27.0) mg/dL Creatinine 0.5 L (0.6-1.5) mg/dL Calcium 7.5 L (8.7-10.3) mg/dL Total Bilirubin <0.15 L (0.30-1.20) mg/dL AST 11 L (13-35) U/L Total Protein 4.3 L (6.2-8.2) g/dL Albumin 2.3 L (3.8-4.9) g/dL Albumin/Globulin Ratio 1.15 L (1.60-3.17) g/dL Assessment and Plan Plan: Rectal bleeding Evidence of colitis on computed tomography scan, malignancy could not be ruled out Previous history of colitis diagnosed in 2018 on colonoscopy and biopsy, patient has been maintained on Lialda Leukocytosis on presentation Hyponatremia with sodium of 125 on presentation Dehydration with acute kidney injury with elevated BUN and creatinine on presentation Underlying history of hypertension Underlying history of hyperlipidemia Underlying history of chronic obstructive pulmonary disease Previous history of smoking At this time patient is admitted to medical floor Surgical consultation requested for possible colonoscopy, gastroenterology is not available this week for hospital consult Home medications reviewed and reordered For DVT prophylaxis avoid anticoagulation and use SCD stockings due to rectal bleeding Consult nephrology in regard to severe hyponatremia, continue was normal saline at 75 mL an hour Recheck labs in a.m. Will follow closely
[2022-04-30 17:13] LABS: % Iron Saturation 4.36 (12.00-45.00)
[2022-04-30 17:27] VITALS: BMI 23.2
--- NOTE | 2022-04-30 18:16 | CONS ---
CONSULTATION REASON FOR CONSULTATION: Hyponatremia. HISTORY OF PRESENT ILLNESS: Patient is an 82-year-old female who was admitted to the hospital with complaints of blood in her stool. Patient stated that she had decreased oral intake as she had some abdominal discomfort as well. Serum sodium was 125 on admission. Patient is maintained on IV saline and her sodium is up to 135 now. Serum creatinine was 1.24 and it is down to 0.5 currently. Patient was maintained on Lasix at home. Stool for occult blood was positive. Hemoglobin has dropped to 8.8 from 11.1 on initial admission. PAST MEDICAL HISTORY: Significant for coronary artery disease, COPD, gastroesophageal reflux disease, hypertension, history of DE, cardiomyopathy, ulcerative colitis. PAST SURGICAL HISTORY: Appendectomy, cholecystectomy, cardiac catheterization, tonsillectomy, tubal ligation, colonoscopy, cataract surgery. SOCIAL HISTORY: Negative for smoking. Patient was a former smoker. No history of drug abuse or alcohol abuse. MEDICATIONS: Medications at home prior to admission included aspirin, albuterol, glucosamine, Cozaar, Zocor, vitamin C, Lasix. ALLERGIES: ALLERGIES INCLUDE SULFA, NIACIN, BENADRYL. PHYSICAL EXAMINATION: Patient is currently comfortable, awake, not in any acute distress. Alert, oriented x3. Blood pressure was 116/78, heart rate 71 per minute. Patient is afebrile. Examination of the heart: S1, S2. Examination of lungs: Bilateral breath sounds are heard. Abdomen is soft, nontender. Examination of lower extremities shows no significant edema. [employer] exam grossly intact. LABS: Sodium of 135, potassium 3.6, BUN 7.8, creatinine 0.5, hemoglobin 8.8 g/dL. ASSESSMENT: 1. Hypovolemic hyponatremia, currently improved with saline. 2. Gastrointestinal blood. Patient is being followed by Surgery. 3. Hypertension, currently stable. 4. History of coronary artery disease. 5. Previous history of ulcerative colitis. 6. Volume depletion, currently improved. 7. Acute kidney injury, prerenal, currently improved. PLAN: Continue with saline. Monitor electrolytes and repeat labs in a.m. Check iron profile and replace iron and continue to monitor for need for packed RBCs transfusion. Thank you for the consultation. Will continue to follow the patient with you during her hospitalization. MMODL / IJN: [id number] /
[2022-05-01] MEDS: SODIUM CHLORIDE 0.9% 1,000 ML IV SCH ×3 (01:26→13:34)
[2022-05-01] MEDS: BALSALAZIDE DISODIUM 750 MG CAPSULE PO SCH ×2 (01:28→08:26)
[2022-05-01] MEDS: PIPERACILLIN-TAZOBACTAM 3.375 GM in SODIUM CHLORIDE 0.9% 100 ML IVPB SCH ×2 (01:28→08:00)
[2022-05-01] MEDS: ASPIRIN 81 MG PO SCH (07:28)
[2022-05-01] MEDS: MULTIVITAMINS, THERA 1 EACH TAB PO SCH (07:28)
[2022-05-01] MEDS: CHOLECALCIFEROL 25 MCG (1000 IU) TABLET PO SCH (07:28)
[2022-05-01] MEDS: ATORVASTATIN 10 MG TAB PO SCH (07:28)
[2022-05-01] MEDS: SYMBICORT 160-4.5 MCG INHALER INHALATION SCH (07:44)
[2022-05-01] MEDS: ALBUTEROL NEBULIZED 2.5 MG/3 ML INHALATION SCH ×3 (07:44→15:40)
[2022-05-01] MEDS: FAMOTIDINE 20 MG/2 ML VIAL IV SCH (08:01)
[2022-05-01] MEDS: ONDANSETRON 4 MG/2 ML VIAL IVP PRN (08:01)
[2022-05-01] MEDS: LOSARTAN 25 MG TAB PO SCH (08:01)
[2022-05-01] MEDS ORDERED: IV FLUID CONTINUATION 1,000 ML IV ONE (10:45)
--- NOTE | 2022-05-01 11:59 | P.PCN ---
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 ANESTHESIA: MAC. INDICATIONS: The patient is a 82-year-old female reports a one-month history of increased abdominal pain, rectal bleeding and change in bowel habits. She takes medications for her colitis however she has been noncompliant. Due to her gastrointestinal bleeding, colonoscopy is requested. Benefits and risks were described and informed consent was obtained. DESCRIPTION OF PROCEDURE: The patient had undergone attempted Golytely prep 2 L. The patient had been brought into the operating room and laid in the left lateral decubitus position. After adequate intravenous sedation, the rectum was examined with 2% lidocaine jelly. External hemorrhoids, grade 3 was identified. The rectal tone was. An Olympus colonoscope was gently advanced to the cecum with clear visualization of the ileocecal valve including appendiceal orifice. The prep was fair. Severe ulcerative colitis involving the rectum, sigmoid colon, descending colon with pseudomembranous colitis and pseudo-inflammatory polyps were identified. Random cold forceps biopsies were obtained due to high risk of dysplasitc polyps involving the descending colon and sigmoid colon. Mucosal friability of the sigmoid colon was also identified consistent with a gastrointestinal bleed and hematochezia. The cecum, ascending colon, ileocecal valve including transverse colon were unremarkable for acute colitis. Biopsies were also obtained of the uninvolved areas. Retroflexion of the scope demonstrated grade 3 internal hemorrhoids with recent inflammation. The colon was desufflated. The patient had tolerated the procedure well. Withdrawal time was over 6 minutes. FINDINGS: Aronchick preparation quality scale 3 (1-5) Internal hemorrhoids, grade 3 External hemorrhoid identified, grade 3 No arteriovenous malformations. Severe ulcerative colitis involving the rectum, sigmoid colon, descending colon with pseudomembranous colitis and pseudo-inflammatory polyps were identified. Ileocecal valve, appendiceal orifice, cecum, ascending colon, transverse colon uninvolved of severe colitis. RECOMMENDATIONS: 1. Recommend low fiber diet. 2. Due to features of severe ulcerative colitis with questionable dysplasia, colectomy is described which may be done as outpatient. 3. Recommend compliance to medical treatment. 4. Above findings discussed with patient including her daughter Anya [id number]. 5. Recommend second opinion with colorectal referral for severity of ulcerative colitis for total abdominal colectomy versus colectomy Plan - Discharge Summary Discharge Rx Participant: Yes New Discharge Prescriptions: No Action Budesonide-Formot 160-4.5 Mcg [Symbicort 160-4.5 Mcg Inhaler] 2 puff INHALATION RT-BID Aspirin 81 mg PO DAILY Mesalamine [Lialda] 1.2 gm PO TID Simvastatin [Zocor] 20 mg PO DAILY Losartan [Cozaar] 25 mg PO DAILY Albuterol Inhaler [Ventolin Hfa Inhaler] 2 puff INHALATION RT-QID PRN PRN Reason: Shortness Of Breath Glucosam/Kareem-Msm1/C/Rafael/Bosw [Glucosamine-Chondroitin Tablet] 1 tab PO DAILY Multivit with Calcium,Iron,Min [Women's Multivitamin] 1 tab PO DAILY Ascorbic Acid [Vitamin C] 1,000 mg PO DAILY Albuterol Nebulized [Ventolin Nebulized] 2.5 mg INHALATION RT-QID Furosemide [Lasix] 20 mg PO DAILY PRN PRN Reason: Edema Cholecalciferol [Vitamin D3 (25 Mcg = 1000 Iu)] 25 mcg PO DAILY Discharge Medication List Aspirin 81 mg PO DAILY 02/14/16 [History] Budesonide-Formot 160-4.5 Mcg [Symbicort 160-4.5 Mcg Inhaler] 2 puff INHALATION RT-BID 02/14/16 [History] Mesalamine [Lialda] 1.2 gm PO TID 02/14/16 [History] Albuterol Inhaler [Ventolin Hfa Inhaler] 2 puff INHALATION RT-QID PRN 01/29/18 [History] Glucosam/Kareem-Msm1/C/Rafael/Bosw [Glucosamine-Chondroitin Tablet] 1 tab PO DAILY 01/29/18 [History] Losartan [Cozaar] 25 mg PO DAILY 01/29/18 [History] Simvastatin [Zocor] 20 mg PO DAILY 01/29/18 [History] Albuterol Nebulized [Ventolin Nebulized] 2.5 mg INHALATION RT-QID 04/28/22 [History] Ascorbic Acid [Vitamin C] 1,000 mg PO DAILY 04/28/22 [History] Cholecalciferol [Vitamin D3 (25 Mcg = 1000 Iu)] 25 mcg PO DAILY 04/28/22 [History] Furosemide [Lasix] 20 mg PO DAILY PRN 04/28/22 [History] Multivit with Calcium,Iron,Min [Women's Multivitamin] 1 tab PO DAILY 04/28/22 [History] Follow up Appointment(s)/Referral(s): Brittany Solis MD [Primary Care Provider] - 1-2 days
[2022-05-01 12:04] VITALS: BP 108/68; PULSE 56; TEMP 97.9
--- NOTE | 2022-05-01 12:06 | P.PN ---
Progress Note - Text Progress Note Date: 05/01/22 Findings discussed with patient and daughter. May have low fiber diet. Stable from a surgical standpoint for discharge with compliance with medications. Recommend follow-up as outpatient
[2022-05-01] MEDS ORDERED: SODIUM FERRIC GLUCONAT-SUCROSE 125 MG in SODIUM CHLORIDE 0.9% 100 ML IVPB ONE (13:00)
--- NOTE | 2022-05-01 14:54 | P.DS ---
Providers Date of admission: 04/28/22 15:25 Expected date of discharge: 05/01/22 Attending physician: Rebecca Sierra Consults: 04/28/22 15:25 Consult Physician Routine Consulting Provider: Katelynn Springer Consult Reason/Comments: Abdominal pain, colitis Do you want consulting provider notified?: Yes, Notify in am 04/29/22 20:13 Consult Physician Routine Consulting Provider: Kaitlin Fan Consult Reason/Comments: Hyponatremia Do you want consulting provider notified?: Yes [facility] Course: Diagnosis on discharge: Rectal bleeding Evidence of colitis on computed tomography scan, malignancy could not be ruled out Previous history of colitis diagnosed in 2018 on colonoscopy and biopsy, patient has been maintained on Lialda Leukocytosis on presentation Hyponatremia with sodium of 125 on presentation Dehydration with acute kidney injury with elevated BUN and creatinine on presentation Underlying history of hypertension Underlying history of hyperlipidemia Underlying history of chronic obstructive pulmonary disease Previous history of smoking Hospital course: Marilyn Jalloh, is an 82-year-old female who presented to [facility] with a chief complaint of rectal bleeding. Patient stated that for the last 4 weeks she had episodes of bright red blood per rectum on and off she started having some abdominal discomfort and nausea and vomiting and decided to come to emergency room. She was evaluated in the emergency room vital examination on presentation revealed a temperature of 98.2 pulse 94 respiration 18 blood pressure 117/64 pulse ox 96% on room air Laboratory data revealed a white blood count of 11.6 hemoglobin 11.1 platelet count 829 sodium 125 potassium 4.7 chloride 91 CO2 26 BUN 22 creatinine 1.4 Testing in the emergency room revealed computed tomography scan of the abdomen and pelvis done in the emergency room revealed inflammatory changes involving the descending colon sigmoid colon and rectum concerning for colitis without evidence of pericolonic abscess or pneumatosis, there was also enlarged lymph nodes, patient was started on IV antibiotic Zosyn in the emergency room, surgical consultation was requested for possible colonoscopy Patient was admitted to medical floor for further evaluation and treatment On 04/29/2022 patient was seen and examined on the medical floor she is alert and oriented in no apparent distress there is no fever or chills no headache or dizziness no chest pain or shortness of breath no cough no nausea or vomiting no abdominal pain no diarrhea no burning with urination no frequency or urgency and no hematuria, patient was seen by Dr. Stacy, at this time will continue with current medications, will monitor hemoglobin and sodium level closely On 04/30/2022 patient was seen and examined on the medical floor she is alert and oriented 3 in no apparent distress his having abdominal cramping at this time she is taking GoLYTELY in preparation for colonoscopy otherwise she denies any complaints there is no fever or chills no headache or dizziness no chest pain no shortness of breath no cough no nausea or vomiting no abdominal pain no diarrhea and no urinary symptoms kidney function improved BUN was 22 and creatinine 1.24 on presentation currently BUN is 7.8 and creatinine 0.5 sodium was 125 on presentation and currently sodium is 135 will continue was current management awaiting colonoscopy results tomorrow Patient Condition at Discharge: Fair Plan - Discharge Summary Discharge Rx Participant: Yes New Discharge Prescriptions: Continue Budesonide-Formot 160-4.5 Mcg [Symbicort 160-4.5 Mcg Inhaler] 2 puff INHALATION RT-BID Aspirin 81 mg PO DAILY Mesalamine [Lialda] 1.2 gm PO TID Simvastatin [Zocor] 20 mg PO DAILY Losartan [Cozaar] 25 mg PO DAILY Albuterol Inhaler [Ventolin Hfa Inhaler] 2 puff INHALATION RT-QID PRN PRN Reason: Shortness Of Breath Glucosam/Kareem-Msm1/C/Rafael/Bosw [Glucosamine-Chondroitin Tablet] 1 tab PO DAILY Multivit with Calcium,Iron,Min [Women's Multivitamin] 1 tab PO DAILY Ascorbic Acid [Vitamin C] 1,000 mg PO DAILY Albuterol Nebulized [Ventolin Nebulized] 2.5 mg INHALATION RT-QID Furosemide [Lasix] 20 mg PO DAILY PRN PRN Reason: Edema Cholecalciferol [Vitamin D3 (25 Mcg = 1000 Iu)] 25 mcg PO DAILY Discharge Medication List Aspirin 81 mg PO DAILY 02/14/16 [History] Budesonide-Formot 160-4.5 Mcg [Symbicort 160-4.5 Mcg Inhaler] 2 puff INHALATION RT-BID 02/14/16 [History] Mesalamine [Lialda] 1.2 gm PO TID 02/14/16 [History] Albuterol Inhaler [Ventolin Hfa Inhaler] 2 puff INHALATION RT-QID PRN 01/29/18 [History] Glucosam/Kareem-Msm1/C/Rafael/Bosw [Glucosamine-Chondroitin Tablet] 1 tab PO DAILY 01/29/18 [History] Losartan [Cozaar] 25 mg PO DAILY 01/29/18 [History] Simvastatin [Zocor] 20 mg PO DAILY 01/29/18 [History] Albuterol Nebulized [Ventolin Nebulized] 2.5 mg INHALATION RT-QID 04/28/22 [History] Ascorbic Acid [Vitamin C] 1,000 mg PO DAILY 04/28/22 [History] Cholecalciferol [Vitamin D3 (25 Mcg = 1000 Iu)] 25 mcg PO DAILY 04/28/22 [History] Furosemide [Lasix] 20 mg PO DAILY PRN 04/28/22 [History] Multivit with Calcium,Iron,Min [Women's Multivitamin] 1 tab PO DAILY 04/28/22 [History] Follow up Appointment(s)/Referral(s): Brittany Solis MD [Primary Care Provider] - 05/02/22 1:30 pm Katelynn Springer MD [STAFF PHYSICIAN] - 05/14/22 Patient Instructions/Handouts: Ulcerative Colitis (DC) Discharge Disposition: HOME SELF-CARE
[2022-05-01] MEDS ORDERED: FAMOTIDINE 20 MG TAB PO SCH (21:00)
== END 2022-05-01 16:01 | disposition home or self-care (01) | DRG 386 ==
LOC: EC 09:53 → 5NMEDONC 15:25
PROVIDERS: ADMIT Internal Medicine; ATTEND Internal Medicine
PROC: 0DBM8ZX Excision of Descending Colon, Via Natural or Artificial Opening Endoscopic, Diagnostic (ICD-10-PCS; principal; 2022-05-01 09:10)
PROC: 0DBN8ZX Excision of Sigmoid Colon, Via Natural or Artificial Opening Endoscopic, Diagnostic (ICD-10-PCS; 2022-05-01 09:10)
DX: K51.811 Other ulcerative colitis with rectal bleeding (principal); E87.1 Hypo-osmolality and hyponatremia; N17.9 Acute kidney failure, unspecified; I42.9 Cardiomyopathy, unspecified; K51.411 Inflammatory polyps of colon with rectal bleeding; A04.72 Enterocolitis due to Clostridium difficile, not specified as recurrent; I10 Essential (primary) hypertension; I25.2 Old myocardial infarction; J44.9 Chronic obstructive pulmonary disease, unspecified; K64.4 Residual hemorrhoidal skin tags; K64.8 Other hemorrhoids; I25.10 Atherosclerotic heart disease of native coronary artery without angina pectoris; E78.5 Hyperlipidemia, unspecified; E86.0 Dehydration; E86.1 Hypovolemia; Z79.51 Long term (current) use of inhaled steroids; Z79.82 Long term (current) use of aspirin; Z79.899 Other long term (current) drug therapy; Z82.49 Family history of ischemic heart disease and other diseases of the circulatory system; Z87.891 Personal history of nicotine dependence; Z91.14 Patient's other noncompliance with medication regimen; Z91.19 Patient's noncompliance with other medical treatment and regimen; Z88.8 Allergy status to other drugs, medicaments and biological substances; Z88.2 Allergy status to sulfonamides; Z87.19 Personal history of other diseases of the digestive system; Z98.51 Tubal ligation status; Z90.49 Acquired absence of other specified parts of digestive tract; Z98.42 Cataract extraction status, left eye; Z98.41 Cataract extraction status, right eye
CPT/HCPCS: 36415; 44404; 45380; 74176; 80053; 82272; 83540; 83550; 83690; 83735; 84484; 85025; 85610; 85730; 86850; 86900; 86901; 87324; 88305; 94640; 94760; 96374; 99285

== ENCOUNTER 2022-09-18 06:41 | Inpatient (IN) | payer MEDICARE ==
[2022-09-18] MEDS ORDERED: HYDROcodone/APAP 5-325MG 1 EACH TAB PO STA (07:15)
--- NOTE | 2022-09-18 07:20 | ED ---
Lower Extremity Injury HPI - General Chief Complaint: Extremity Injury, Lower Stated Complaint: Fall, Right Leg Pain Time Seen by Provider: 09/18/22 07:06 Source: patient, family, RN notes reviewed Mode of arrival: wheelchair Limitations: no limitations - History of Present Illness Initial Comments: This is an 82-year-old female who presents to the emergency department for a fall. Patient states that 3 days ago she was walking around at home, when her cat went in between her legs, and she subsequently fell. When she fell, she landed on her right side and currently has pain to the right hip and right upper leg as well as the right hand. Since then, she has had increasing pain and increasing difficulty with ambulation. She is now barely able to get around on her own, and her daughter has been having to help her. She has no pain in the back. She did not hit her head and she denies any loss of consciousness. She takes a baby aspirin daily and is on no other blood thinners. She took ibuprofen at home prior to arrival with no relief. Denies any fevers, chills, sore throat, cough, dyspnea, chest pain, palpitations, abdominal pain, nausea, vomiting, diarrhea, back pain, or headaches. MD Complaint: hip injury, thigh injury Place: home Context: fall Treatments Prior to Arrival: NSAIDS - Related Data Home Medications Medication Instructions Recorded Confirmed Aspirin 81 mg PO DAILY 02/14/16 04/28/22 Budesonide-Formot 160-4.5 Mcg 2 puff INHALATION RT-BID 02/14/16 04/28/22 [Symbicort 160-4.5 Mcg Inhaler] Mesalamine [Lialda] 1.2 gm PO TID 02/14/16 04/28/22 Albuterol Inhaler [Ventolin Hfa 2 puff INHALATION RT-QID PRN 01/29/18 04/28/22 Inhaler] Glucosam/Kareem-Msm1/C/Rafael/Bosw 1 tab PO DAILY 01/29/18 04/28/22 [Glucosamine-Chondroitin Tablet] Losartan [Cozaar] 25 mg PO DAILY 01/29/18 04/28/22 Simvastatin [Zocor] 20 mg PO DAILY 01/29/18 04/28/22 Albuterol Nebulized [Ventolin 2.5 mg INHALATION RT-QID 04/28/22 04/28/22 Nebulized] Ascorbic Acid [Vitamin C] 1,000 mg PO DAILY 04/28/22 04/28/22 Cholecalciferol [Vitamin D3 (25 25 mcg PO DAILY 04/28/22 04/28/22 Mcg = 1000 Iu)] Furosemide [Lasix] 20 mg PO DAILY PRN 04/28/22 04/28/22 Multivit with Calcium,Iron,Min 1 tab PO DAILY 04/28/22 04/28/22 [Women's Multivitamin] Allergies Allergy/AdvReac Type Severity Reaction Status Date / Time niacin Allergy Itching Verified 09/18/22 07:04 Sulfa (Sulfonamide Allergy Anaphylaxis Verified 09/18/22 07:04 Antibiotics) diphenhydramine HCl AdvReac Itching Verified 09/18/22 07:04 [From Benadryl] Review of Systems ROS Statement: Those systems with pertinent positive or pertinent negative responses have been documented in the HPI. ROS Other: All systems not noted in ROS Statement are negative. Past Medical History Past Medical History: Coronary Artery Disease (CAD), COPD, GERD/Reflux, Hypertension, Myocardial Infarction ([place]) Additional Past Medical History / Comment(s): CARDIOMYOPATHY. ULCERATIVE COLITIS Last Myocardial Infarction Date:: 07/12/2013 History of Any Multi-Drug Resistant Organisms: None Reported Past Surgical History: Appendectomy, Cholecystectomy, Heart Catheterization, Tonsillectomy, Tubal Ligation Additional Past Surgical History / Comment(s): COLONOSCOPY X3. BILAT CATARACTS REMOVED Past Anesthesia/Blood Transfusion Reactions: No Reported Reaction Past Psychological History: No Psychological Hx Reported Smoking Status: Former smoker Past Alcohol Use History: Occasional Past Drug Use History: None Reported - Past Family History Mother Family Medical History: Myocardial Infarction ([place]) Father Family Medical History: Myocardial Infarction ([place]) Additional Family Medical History / Comment(s): at 82 years General Exam Limitations: no limitations General appearance: alert, in no apparent distress Head exam: Present: atraumatic, normocephalic, normal inspection Respiratory exam: Present: normal lung sounds bilaterally. Absent: respiratory distress, wheezes, rales, rhonchi, stridor Cardiovascular Exam: Present: regular rate, normal rhythm, normal heart sounds. Absent: systolic murmur, diastolic murmur, rubs, gallop, clicks Extremities exam: Present: other (Tenderness to palpation over the right posterior thigh and right lateral hip. No overlying deformity or ecchymosis. No tenderness over the right hand, full range of motion, and no swelling, erythema, or ecchymosis. 2+ radial pulses and capillary refill less than 1 second.) Neurological exam: Present: alert, oriented X3, CN II-XII intact Psychiatric exam: Present: normal affect, normal mood Skin exam: Present: warm, dry, intact, normal color. Absent: rash Course Vital Signs 09/18/22 07:00 Temperature 98.1 F Pulse Rate 103 H Respiratory 20 Rate Blood Pressure 132/84 O2 Sat by Pulse 96 Oximetry Medical Decision Making - Medical Decision Making This is an 82-year-old female who presents to the emergency department for right leg and right hand pain after a fall. She was given a dose of [place], which she states offered some improvement. X-rays of the right hand, right femur, and right hip were obtained. My interpretation of the femur x-ray reveals no fractures or dislocations. My interpretation of the hip x-ray does reveal a possible irregularity around the greater trochanter related to an area of lucency. The radiologist recommends a computed tomography scan of the hip for additional imaging. My interpretation of the hand x-ray reveals multiple degenerative changes and no displaced fractures. The radiologist makes note of possible nondisplaced distal phalanx fractures of fingers 4 and 5 on the right. Patient states that she is not concerned about this as she has little to no pain in this area. Computed tomography scan of the hip was subsequently obtained due to the irregular x-ray findings. My interpretation of the computed tomography scan of the right hip does reveal an avulsion fracture of the right greater trochanter. Case discussed with on-call orthopedics, Dr. Prasad. He advised that if the patient is not ambulating well and is in significant pain, she can be admitted for possible surgical intervention. The patient is having significant pain and difficulty with ambulation. She also lives alone. This was discussed with the patient and her daughter, who are agreeable to admission. Patient admitted to orthopedics for traumatic injury with medicine listed as a consult. Patient kept NPO in the event any surgical intervention is warranted today. This case was discussed in detail with the attending ED physician. Presentation, findings, and treatment plan discussed in detail as well. - Radiology Data Radiology results: report reviewed, image reviewed Disposition Clinical Impression: Closed avulsion fracture of greater trochanter of right femur Disposition: ADMITTED IP TO THIS HOSP Referrals: Brittany Solis MD [Primary Care Provider] - 1-2 days
--- NOTE | 2022-09-18 07:53 | XR ---
EXAMINATION TYPE: XR hand complete RT DATE OF EXAM: 09/18/2022 COMPARISON: None HISTORY: Pain from fall TECHNIQUE: Right hand is examined in 3 projections FINDINGS: There is moderate degenerative changes to the proximal interphalangeal joint spaces. More a dvanced degenerative joint changes are distal index and middle finger joint spaces. More moderate deg enerative changes of the fourth and fifth digits right hand distal interphalangeal joint spaces. Soft tissue swelling may be at the distal interphalangeal joint spaces index and middle fingers. On the lateral projection a subtle lucency may be within the posterior proximal portion distal phalan x of the ring finger. Some lucency may be within the occipital portion distal phalanx fifth digit. No ndisplaced fractures are not excluded at this these locations. Correlation recommended. No definite fracture of the third digit is identified. IMPRESSION: 1. Possible distal phalanx nondisplaced fractures ring and fifth digit on the lateral projections. C orrelate with location of patient's pain. 2. Advanced degenerative joint changes distal interphalangeal joints of the index and middle fingers.
--- NOTE | 2022-09-18 07:55 | XR ---
EXAMINATION TYPE: XR femur RT DATE OF EXAM: 09/18/2022 COMPARISON: None HISTORY: Pain from fall TECHNIQUE: 2 view right femur FINDINGS: Femoral head articulates with the acetabulum. Joint space mild narrowing. Mild degenerative joint change is noted. No acute fracture or dislocation is evident. Follow-up can be performed as cl inically indicated. Subcutaneous soft tissue calcification is present laterally. IMPRESSION: 1. No acute osseous abnormality right femur
--- NOTE | 2022-09-18 08:02 | XR ---
EXAMINATION TYPE: XR Hip Complete RT DATE OF EXAM: 09/18/2022 COMPARISON: None HISTORY: Pain after fall TECHNIQUE: 2 view right hip FINDINGS: Femoral head articulates with the acetabulum. There is mild diffuse joint space narrowing There is some subtle lucency within the greater trochanter with apparent disruption of the greater tr ochanter cortex. Fracture is suspected. This may be incomplete, medial femoral cortex appears intact. CT could be performed for additional evaluation. IMPRESSION: 1. Fracture suspected at the greater trochanter. Additional evaluation with CT is recommended.
--- NOTE | 2022-09-18 08:42 | CT ---
EXAMINATION TYPE: CT hip RT wo con DATE OF EXAM: 09/18/2022 COMPARISON: Right hip images same date HISTORY: Fall, right hip pain. CT DLP: 418 mGycm Automated exposure control for dose reduction was used. Contrast: None Technique: Axial 3 mm thick sections. Reconstructed images in the coronal and sagittal plane are revi ewed. FINDINGS: The axial plane and avulsion of the posterior aspect of the greater trochanter is evident. The fractu re does not appear to cross the femur in the intertrochanteric region. Femoral head articulates with the acetabulum. Joint space narrowing is present. IMPRESSION: 1. AVULSION OF THE POSTERIOR SUPERIOR ASPECT OF THE GREATER TROCHANTER RIGHT HIP.
[2022-09-18] MEDS ORDERED: ONDANSETRON 4 MG/2 ML VIAL IVP PRN (10:02)
[2022-09-18] MEDS ORDERED: ACETAMINOPHEN TAB 325 MG TAB PO PRN (10:02)
[2022-09-18] MEDS ORDERED: NALOXONE 0.4 MG/ML 1 ML VIAL IV PRN (10:02)
[2022-09-18] MEDS ORDERED: oxyCODONE-APAP 5-325MG 1 EACH TAB PO PRN (10:02)
[2022-09-18 11:43] LABS: Basophils % (A) 0 %; Eosinophils # (A) 0.1 k/uL (0-0.7); Eosinophils % (A) 1 %; HGB 11.8 gm/dL (11.4-16.0); Lymphocytes % (A) 11 %; MCH 30.8 pg (25.0-35.0); MCHC 32.6 g/dL (31.0-37.0); MCV 94.4 fL (80.0-100.0); Mean Platelet Volume 7.8; Monocytes # (A) 0.3 k/uL (0-1.0); Monocytes % (A) 3 %; Neutrophils # (A) 7.3 k/uL (1.3-7.7); Neutrophils % (A) 83 %; Platelet Count 355 k/uL (150-450); RBC 3.81 m/uL (3.80-5.40); RDW 14.4 % (11.5-15.5); WBC 8.9 k/uL (3.8-10.6)
[2022-09-18 11:52] LABS: ALT 22 U/L (4-34); AST 25 U/L (14-36); African American GFR (CKD) >90 (>60 ml/min/1.73 sqM); Alkaline Phosphatase 92 U/L (38-126); Anion Gap 8 mmol/L; Blood Urea Nitrogen 14 mg/dL (7-17); Calcium 9.1 mg/dL (8.4-10.2); Carbon Dioxide 27 mmol/L (22-30); Chloride 102 mmol/L (98-107); Glucose 89 mg/dL (74-99); Non-African American GFR(CKD) >90 (>60 ml/min/1.73 sqM); Sodium 137 mmol/L (137-145); Total Bilirubin 0.8 mg/dL (0.2-1.3); Total Protein 6.6 g/dL (6.3-8.2)
[2022-09-18 12:02] LABS: INR 0.9 (<1.2); Partial Thromboplastin Time 25.9 sec (22.0-30.0); Prothrombin Time 9.4 sec (9.0-12.0)
[2022-09-18] MEDS ORDERED: ALBUTEROL NEBULIZED 2.5 MG/3 ML INHALATION PRN (13:07)
[2022-09-18] MEDS ORDERED: NON FORMULARY DRUG (Albuterol Inhaler 90 MCG Puff) INHALATION PRN (13:07)
[2022-09-18] MEDS ORDERED: FUROSEMIDE 20 MG TAB PO PRN (13:07)
[2022-09-18] MEDS ORDERED: BUDESONIDE 0.5 MG/2 ML NEBU INHALATION PRN (13:07)
--- NOTE | 2022-09-18 13:09 | P.CONS ---
History of Present Illness - History of Present Illness This is a 82-year-old female patient of Dr. Solis who presented to ER after sustaining a fall. Patient reports that she tripped over her cat denies loss of consciousness or hitting her head. Denies any precepting events leading fall. Patient has past medical history of coronary artery disease, COPD, GERD, hypertension, cardiomyopathy, ulcerative colitis and ex-smoker. Hip x-ray completed showing avulsion of the posterior superior aspect of the greater trochanter right hip. Fracture suspected at the greater trochanter. 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 Patient has been admitted to orthopedic services. Due to patient's cardiac history will order cardiac clearance prior to any surgical procedure. Review of Systems Please refer to HPI otherwise unremarkable Past Medical History Past Medical History: Coronary Artery Disease (CAD), COPD, GERD/Reflux, Hypertension, Myocardial Infarction ([place]) Additional Past Medical History / Comment(s): CARDIOMYOPATHY. ULCERATIVE COLITIS Last Myocardial Infarction Date:: 07/12/2013 History of Any Multi-Drug Resistant Organisms: None Reported Past Surgical History: Appendectomy, Cholecystectomy, Heart Catheterization, Tonsillectomy, Tubal Ligation Additional Past Surgical History / Comment(s): COLONOSCOPY X3. BILAT CATARACTS REMOVED Past Anesthesia/Blood Transfusion Reactions: No Reported Reaction Past Psychological History: No Psychological Hx Reported Smoking Status: Former smoker Past Alcohol Use History: Occasional Past Drug Use History: None Reported - Past Family History Mother Family Medical History: Myocardial Infarction ([place]) Father Family Medical History: Myocardial Infarction ([place]) Additional Family Medical History / Comment(s): at 82 years Medications and Allergies Home Medications Medication Instructions Recorded Confirmed Type Aspirin 81 mg PO DAILY 02/14/16 09/18/22 History Budesonide-Formot 160-4.5 Mcg 2 puff INHALATION RT-BID 02/14/16 09/18/22 History [Symbicort 160-4.5 Mcg Inhaler] Albuterol Inhaler [Ventolin Hfa 2 puff INHALATION RT-QID PRN 01/29/18 09/18/22 History Inhaler] Glucosam/Kareem-Msm1/C/Rafael/Bosw 1 tab PO DAILY 01/29/18 09/18/22 History [Glucosamine-Chondroitin Tablet] Losartan [Cozaar] 25 mg PO DAILY 01/29/18 09/18/22 History Simvastatin [Zocor] 20 mg PO DAILY 01/29/18 09/18/22 History Albuterol Nebulized [Ventolin 2.5 mg INHALATION RT-QID PRN 04/28/22 09/18/22 History Nebulized] Furosemide [Lasix] 20 mg PO DAILY PRN 04/28/22 09/18/22 History Balsalazide Disodium 1,500 mg PO TID 09/18/22 09/18/22 History Budesonide [Pulmicort] 0.5 mg INHALATION RT-BID PRN 09/18/22 09/18/22 History Multivit-Min/FA/Lycopen/Lutein 1 tab PO DAILY 09/18/22 09/18/22 History [Centrum Silver Tablet] carvediloL [Coreg] 3.125 mg PO BID 09/18/22 09/18/22 History Allergies Allergy/AdvReac Type Severity Reaction Status Date / Time niacin Allergy Itching Verified 09/18/22 10:59 Sulfa (Sulfonamide Allergy Anaphylaxis Verified 09/18/22 10:59 Antibiotics) diphenhydramine HCl AdvReac Itching Verified 09/18/22 10:59 [From Eva] Physical Exam Vitals: Vital Signs Temp Pulse Resp BP Pulse Ox 09/18/22 07:00 98.1 F 103 H 20 132/84 96 Intake and Output 09/17/22 09/18/22 09/18/22 22:59 06:59 14:59 Other: Weight 53.524 kg Head normocephalic Neck supple Lungs clear to auscultation bilaterally no wheezing or crackles Heart regular rate and rhythm S1-S2, no rub or gallop Abdomen is soft nontender nondistended positive bowel sounds no hepatosplenomegaly Extremities no edema Neuro alert and orientated to 3 Results CBC & Chem 7: 09/18/22 11:33 09/18/22 11:33 Labs: Abnormal Lab Results - Last 24 Hours (Table) 09/18/22 Range/Units 11:33 Creatinine 0.46 L (0.52-1.04) mg/dL Assessment and Plan Assessment: 1. Status post fall and right hip fracture 2. Injury to right hand 3. History of ulcerative colitis 4. History of cardiomyopathy 5. History of coronary artery disease 6. History of essential hypertension 7. History of hyperlipidemia 8. History of COPD 9. Previous smoker Thank you for this consultation we'll continue to follow patient closely throughout stay Cardiology services consulted for cardiac clearance 2-D echo ordered Repeat labs ordered Time with Patient: Greater than 30 (Greater than 60% of the total time spent in counseling and coordination of care)
[2022-09-18] MEDS: HYDROcodone/APAP 5-325MG 1 EACH TAB PO PRN ×2 (13:57→23:32)
[2022-09-18] MEDS: BALSALAZIDE DISODIUM 750 MG CAPSULE PO SCH (16:30)
[2022-09-18] MEDS: carvediloL 3.125 MG TAB PO SCH (17:41)
[2022-09-18] MEDS: SYMBICORT 160-4.5 MCG INHALER INHALATION SCH (20:33)
[2022-09-19] MEDS: BALSALAZIDE DISODIUM 750 MG CAPSULE PO SCH ×4 (02:44→21:14)
[2022-09-19] MEDS: carvediloL 3.125 MG TAB PO SCH ×2 (07:06→16:55)
[2022-09-19] MEDS: ATORVASTATIN 10 MG TAB PO SCH (08:13)
[2022-09-19] MEDS: ASPIRIN 81 MG PO SCH (08:13)
[2022-09-19] MEDS: LOSARTAN 25 MG TAB PO SCH (08:13)
[2022-09-19] MEDS: ALBUTEROL NEBULIZED 2.5 MG/3 ML INHALATION SCH ×4 (08:15→20:03)
[2022-09-19] MEDS: SYMBICORT 160-4.5 MCG INHALER INHALATION SCH ×2 (08:15→20:03)
[2022-09-19 08:56] LABS: Basophils # (A) 0.03 X 10*3/uL (0.00-0.10); Basophils % (A) 0.4 %; Eosinophils # (A) 0.14 X 10*3/uL (0.04-0.35); Eosinophils % (A) 1.9 %; HGB 11.9 g/dL (12.0-15.0); Immature Grans, Automated 0.4 %; Lymphocytes # (A) 1.26 X 10*3/uL (0.90-5.00); Lymphocytes % (A) 17.4 %; MCH 30.5 pg (27.0-32.0); MCHC 33.1 g/dL (32.0-37.0); MCV 92.3 fL (80.0-97.0); Mean Platelet Volume 9.4 fL (9.5-12.2); Monocytes # (A) 0.62 X 10*3/uL (0.20-1.00); Monocytes % (A) 8.6 %; NRBC Per 100 WBC 0 /100 WBCS (0.0-0.0); Neutrophils # (A) 5.17 X 10*3/uL (1.80-7.70); Neutrophils % (A) 71.3 %; Platelet Count 370 X 10*3/uL (140-440); RDW 15.9 % (11.5-14.5); WBC 7.25 X 10*3/uL (4.50-10.00)
[2022-09-19 09:30] LABS: African American GFR (CKD) 94.8 (60.0-200.0); Albumin 4.1 g/dL (3.8-4.9); Albumin/Globulin Ratio 1.78 (1.60-3.17); BUN/Creat Ratio 15.29 Ratio (12.00-20.00); Blood Urea Nitrogen 10.7 mg/dL (9.0-27.0); Calcium 9.4 mg/dL (8.7-10.3); Globulin 2.3 g/dL (1.6-3.3); Non-African American GFR(CKD) 81.8 (60.0-200.0); Total Bilirubin 0.6 mg/dL (0.30-1.20); Total Protein 6.4 g/dL (6.2-8.2)
--- NOTE | 2022-09-19 09:44 | P.HPOB ---
History of Present Illness H&P Date: 09/19/22 Chief Complaint: Right hip pain status post fall The patient is seen and examined at bedside severe pleasant 82-year-old female who tripped and fell at home and had some skin pain at her right hip. She presents the emergency room where she was found have a greater trochanteric fracture and was admitted in this regard. Patient says that she did not have any significant problems prior to her fall. She says that her hip hurts but is not that that for her. She still is able to move her leg. She denies any other injury. She denies any chest pain shortness of breath. Denies any neck pain or loss of consciousness. She denies any other trauma or other pains other than her right hip. Review of Systems As per HPI. She denies any changes in bowel bladder function. Denies any chest pain shortness breath. Denies any nausea or vomiting. Denies any loss of consciousness Past Medical History Past Medical History: Coronary Artery Disease (CAD), COPD, GERD/Reflux, Hypertension, Myocardial Infarction ([place]) Additional Past Medical History / Comment(s): CARDIOMYOPATHY. ULCERATIVE COLITIS Last Myocardial Infarction Date:: 07/12/2013 History of Any Multi-Drug Resistant Organisms: None Reported Past Surgical History: Appendectomy, Cholecystectomy, Heart Catheterization, Tonsillectomy, Tubal Ligation Additional Past Surgical History / Comment(s): COLONOSCOPY X3. BILAT CATARACTS REMOVED Past Anesthesia/Blood Transfusion Reactions: No Reported Reaction Smoking Status: Former smoker - Past Family History Mother Family Medical History: Myocardial Infarction ([place]) Father Family Medical History: Myocardial Infarction ([place]) Additional Family Medical History / Comment(s): at 82 years Medications and Allergies Home Medications Medication Instructions Recorded Confirmed Type Aspirin 81 mg PO DAILY 02/14/16 09/18/22 History Budesonide-Formot 160-4.5 Mcg 2 puff INHALATION RT-BID 02/14/16 09/18/22 History [Symbicort 160-4.5 Mcg Inhaler] Albuterol Inhaler [Ventolin Hfa 2 puff INHALATION RT-QID PRN 01/29/18 09/18/22 History Inhaler] Glucosam/Kareem-Msm1/C/Rafael/Bosw 1 tab PO DAILY 01/29/18 09/18/22 History [Glucosamine-Chondroitin Tablet] Losartan [Cozaar] 25 mg PO DAILY 01/29/18 09/18/22 History Simvastatin [Zocor] 20 mg PO DAILY 01/29/18 09/18/22 History Albuterol Nebulized [Ventolin 2.5 mg INHALATION RT-QID PRN 04/28/22 09/18/22 History Nebulized] Furosemide [Lasix] 20 mg PO DAILY PRN 04/28/22 09/18/22 History Balsalazide Disodium 1,500 mg PO TID 09/18/22 09/18/22 History Budesonide [Pulmicort] 0.5 mg INHALATION RT-BID PRN 09/18/22 09/18/22 History Multivit-Min/FA/Lycopen/Lutein 1 tab PO DAILY 09/18/22 09/18/22 History [Centrum Silver Tablet] carvediloL [Coreg] 3.125 mg PO BID 09/18/22 09/18/22 History Allergies Allergy/AdvReac Type Severity Reaction Status Date / Time niacin Allergy Itching Verified 09/18/22 10:59 Sulfa (Sulfonamide Allergy Anaphylaxis Verified 09/18/22 10:59 Antibiotics) diphenhydramine HCl AdvReac Itching Verified 09/18/22 10:59 [From Benadryl] Exam Osteopathic Statement: An exam of her hip from an orthopedic standpoint, at her right lower extremity she is able to lift her leg up off the bed independently. She has some tenderness over her greater trochanter. There is no open wounds lacerations or abrasions. Her thighs and calf soft nontender. Her knees have good active and passive range of motion bilaterally. Her ankles have full active and passive range of motion. There is some mild pain with internal extra rotation her right hip. There is no pain on the left. Her chest has good excursion deep inspiration and expiration her upper extremities have full active and passive range of motion. Her neck is nontender to palpation range of motion.. Vital Signs Temp Pulse Pulse Resp BP BP Pulse Ox 09/19/22 08:30 92 09/19/22 08:16 92 09/19/22 08:00 98.3 F 95 18 122/70 96 09/19/22 01:40 97.7 F 87 18 122/61 95 09/18/22 20:44 96 09/18/22 20:34 92 09/18/22 19:42 98.0 F 97 18 116/71 99 09/18/22 17:58 98.2 F 93 18 154/72 100 09/18/22 17:09 98.1 F 87 18 123/69 99 09/18/22 16:32 85 16 116/71 99 Intake and Output 09/18/22 09/19/22 09/19/22 22:59 06:59 14:59 Other: # Voids 1 6 # Bowel Movements 1 2 Weight 53.524 kg Results X-rays and computed tomography scan of her hip are reviewed. It shows greater trochanter avulsion fracture on the right. There is no fracture through the neck or along the intertrochanteric line. The fracture appears to be adequately positioned. Result Diagrams: 09/19/22 05:29 09/19/22 05:29 Abnormal Lab Results - Last 24 Hours (Table) 09/18/22 09/19/22 Range/Units 11:33 05:29 RBC 3.90 L (4.10-5.20) X 10*6/uL Hgb 11.9 L (12.0-15.0) g/dL Hct 36.0 L (37.2-46.3) % RDW 15.9 H (11.5-14.5) % MPV 9.4 L (9.5-12.2) fL Creatinine 0.46 L (0.52-1.04) mg/dL Assessment and Plan Assessment: Status post fall Acute right hip greater trochanteric avulsion fracture without hip instability Difficulty ambulating due to fall and fracture Plan: Status post fall Acute right hip greater trochanteric avulsion fracture without hip instability Difficulty ambulating due to fall and fracture The patient has an acute injury at her right hip with her greater trochanteric fracture. Fortunately the fracture appears to be stable and will not need surgical intervention at this point. If the fracture remains in the current position she can do well with conservative management. We do not plan any surgical intervention at this point. I think the patient should try to get up with physical therapy and limit her weightbearing on her right lower extremity. If she is able to mobilize well she could potentially return home with home health, however if she is having di fficulty she may need placement post hospitalization. I spoke with the patient and HER-2 daughters in this regard and they understand. We will see how she does with physical therapy and plan for her being discharged when she is stable with therapy and medication
[2022-09-19] MEDS: HYDROcodone/APAP 5-325MG 1 EACH TAB PO PRN ×2 (12:13→18:37)
--- NOTE | 2022-09-19 17:25 | P.PN ---
Subjective Progress Note Date: 09/19/22 Marilyn Jalloh, is a 82-year-old female patient of Dr. Solis who presented to ER after sustaining a fall. Patient reports that she tripped over her cat denies loss of consciousness or hitting her head. Denies any precepting events leading fall. Patient has past medical history of coronary artery disease, COPD, GERD, hypertension, cardiomyopathy, ulcerative colitis and ex-smoker. Hip x-ray completed showing avulsion of the posterior superior aspect of the greater trochanter right hip. Fracture suspected at the greater trochanter. 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 Patient has been admitted to orthopedic services. Due to patient's cardiac history will order cardiac clearance prior to any surgical procedure. On 09/19/2022 patient was seen and examined on the medical floor she is alert and oriented 3 in no apparent distress there is no fever or chills no headache or dizziness no chest pain no shortness of breath no cough no nausea or vomiting no abdominal pain no diarrhea and no urinary symptoms. She was reevaluated by orthopedic surgery today, no surgical intervention is recommended at this time, plan is to for transfer to rehab tomorrow. Objective - Vital Signs Vital signs: Vital Signs Temp 98.3 F 09/19/22 08:00 Pulse 96 09/19/22 12:00 Resp 18 09/19/22 10:06 BP 122/70 09/19/22 08:00 Pulse Ox 96 09/19/22 08:00 FiO2 Intake & Output 09/18/22 09/19/22 09/19/22 18:59 06:59 18:59 Weight 53.524 kg Other: # Voids 1 6 # Bowel Movements 1 2 - Exam In general patient is alert and oriented x 3 in no distress HEENT head normocephalic and atraumatic Neck is supple no JVD no goiter no lymphadenopathy no carotid bruit Chest examination is clear to auscultation no crackles no wheezing Cardiac exam reveals regular heart sounds S1 and S2 no gallops no murmurs Abdomen is soft nontender no organomegaly with normal bowel sounds Extremity exam reveals no edema no cyanosis or clubbing Neurological examination reveals no gross focal deficits - Labs CBC & Chem 7: 12/15/22 05:29 09/19/22 05:29 Labs: Abnormal Lab Results - Last 24 Hours (Table) 09/19/22 Range/Units 05:29 RBC 3.90 L (4.10-5.20) X 10*6/uL Hgb 11.9 L (12.0-15.0) g/dL Hct 36.0 L (37.2-46.3) % RDW 15.9 H (11.5-14.5) % MPV 9.4 L (9.5-12.2) fL Assessment and Plan Assessment: 1. Status post fall and right hip fracture 2. Injury to right hand 3. History of ulcerative colitis 4. History of cardiomyopathy 5. History of coronary artery disease 6. History of essential hypertension 7. History of hyperlipidemia 8. History of COPD 9. Previous smoker Thank you for this consultation we'll continue to follow patient closely throughout stay Cardiology services consulted for cardiac clearance 2-D echo ordered Repeat labs ordered
[2022-09-20] MEDS: HYDROcodone/APAP 5-325MG 1 EACH TAB PO PRN (02:42)
[2022-09-20] MEDS: carvediloL 3.125 MG TAB PO SCH (06:29)
[2022-09-20 07:32] VITALS: BP 109/70; RESP 17; TEMP 98.4
[2022-09-20 08:15] LABS: ALT 20 U/L (4-34); AST 28 U/L (14-36); African American GFR (CKD) >90 (>60 ml/min/1.73 sqM); Albumin/Globulin Ratio 1.3; Alkaline Phosphatase 82 U/L (38-126); Anion Gap 6 mmol/L; Blood Urea Nitrogen 11 mg/dL (7-17); Calcium 8.2 mg/dL (8.4-10.2); Carbon Dioxide 26 mmol/L (22-30); Chloride 103 mmol/L (98-107); Globulin 2.3 g/dL; Glucose 94 mg/dL (74-99); Non-African American GFR(CKD) 88 (>60 ml/min/1.73 sqM); Potassium 3.8 mmol/L (3.5-5.1); Sodium 135 mmol/L (137-145); Total Bilirubin 0.6 mg/dL (0.2-1.3); Total Protein 5.3 g/dL (6.3-8.2)
[2022-09-20] MEDS: ALBUTEROL NEBULIZED 2.5 MG/3 ML INHALATION SCH ×2 (08:50→11:56)
[2022-09-20] MEDS: SYMBICORT 160-4.5 MCG INHALER INHALATION SCH (08:50)
--- NOTE | 2022-09-20 08:50 | P.DS ---
Providers Date of admission: 09/18/22 11:18 Expected date of discharge: 09/20/22 Attending physician: Faviola Prasad Consults: 09/18/22 10:02 Consult Physician Urgent Consulting Provider: Rebecca Sierra Consult Reason/Comments: Medical management Do you want consulting provider notified?: Yes Primary care physician: Brittany Solis - Discharge Diagnosis(es) (1) Acute right hip pain Status: Acute (2) Status post fall Status: Acute (3) Ulcerative colitis Status: Acute (4) Coronary artery disease Status: Acute (5) Cardiomyopathy Status: Acute (6) Essential hypertension Status: Acute (7) Hyperlipidemia Status: Acute (8) COPD (chronic obstructive pulmonary disease) Status: Acute (9) History of cigar smoking Status: Acute (10) Closed avulsion fracture of greater trochanter of right femur Status: Acute Hospital Course: This is a pleasant 82-year-old female who presented with acute right hip greater trochanteric avulsion fracture status post fall without hip instability. She presented to the emergency department for further evaluation. She was admitted for further treatment. She has been improving since her minutes to the hosp ital. She feels her right hip pain is well-controlled. She has been able to ambulate with the assistance of a walker and with physical therapy. She feels her pain is well-controlled and she is ready for discharge today. She will be discharged to rehabilitation facility. Medicine states they are planning for clearance for discharge today. Patient is happy with her progress since her last appointment. She denies any lower extremity weakness or radiculopathy bilaterally. She does have some pain towards her right buttock. Condition on day of discharge stable. Patient will be discharged to [facility] pending clearance by medicine. Patient currently denies any nausea, vomiting, fever, or chills. Patient is eating and voiding freely without difficulty. She may continue to limit weightbearing on the right lower extremity and may utilize a walker to aid in ambulation. She is encouraged to continue working with physical therapy to increase her mobility and ambulation. MAPS has been reviewed. An "Opiod Start Talking" Form has been signed and placed in the patient's chart. A prescription has been written for hydrocodone 5 mg/325 mg, take 1 tab every 8 hours as needed for acute pain, dispensed #21 Patient's other medical diagnoses include history of ulcerative colitis, cardiomyopathy, coronary artery disease, essential hypertension, hyperlipidemia, COPD, and previous smoker. Physical exam: Patient is awake, alert, and oriented 3 Vital signs stable Good chest excursion with deep inspiration and expiration No specific pain with palpation over the right greater trochanter Dorsiflexion, plantarflexion, and extensor hallucis longus positive sustained bilaterally Lower extremity strength 5/5 bilaterally Straight leg test negative bilateral lower extremities No signs or symptoms of DVT; no calf pain No pain with internal and external rotation of the hips bilaterally Neurovascularly intact Patient Condition at Discharge: Stable Plan - Discharge Summary New Discharge Prescriptions: New HYDROcodone/APAP 5-325MG [[place] 5] 1 each PO Q8HR PRN #21 tab PRN Reason: Pain Continue Budesonide-Formot 160-4.5 Mcg [Symbicort 160-4.5 Mcg Inhaler] 2 puff INHALATION RT-BID Aspirin 81 mg PO DAILY Simvastatin [Zocor] 20 mg PO DAILY Losartan [Cozaar] 25 mg PO DAILY Albuterol Inhaler [Ventolin Hfa Inhaler] 2 puff INHALATION RT-QID PRN PRN Reason: Shortness Of Breath Glucosam/Kareem-Msm1/C/Rafael/Bosw [Glucosamine-Chondroitin Tablet] 1 tab PO DAILY Albuterol Nebulized [Ventolin Nebulized] 2.5 mg INHALATION RT-QID PRN PRN Reason: Shortness Of Breath Budesonide [Pulmicort] 0.5 mg INHALATION RT-BID PRN PRN Reason: Shortness Of Breath Furosemide [Lasix] 20 mg PO DAILY PRN PRN Reason: Edema carvediloL [Coreg] 3.125 mg PO BID Multivit-Min/FA/Lycopen/Lutein [Centrum Silver Tablet] 1 tab PO DAILY Balsalazide Disodium 1,500 mg PO TID Discharge Medication List Aspirin 81 mg PO DAILY 02/14/16 [History] Budesonide-Formot 160-4.5 Mcg [Symbicort 160-4.5 Mcg Inhaler] 2 puff INHALATION RT-BID 02/14/16 [History] Albuterol Inhaler [Ventolin Hfa Inhaler] 2 puff INHALATION RT-QID PRN 01/29/18 [History] Glucosam/Kareem-Msm1/C/Rafael/Bosw [Glucosamine-Chondroitin Tablet] 1 tab PO DAILY 01/29/18 [History] Losartan [Cozaar] 25 mg PO DAILY 01/29/18 [History] Simvastatin [Zocor] 20 mg PO DAILY 01/29/18 [History] Albuterol Nebulized [Ventolin Nebulized] 2.5 mg INHALATION RT-QID PRN 04/28/22 [History] Furosemide [Lasix] 20 mg PO DAILY PRN 04/28/22 [History] Balsalazide Disodium 1,500 mg PO TID 09/18/22 [History] Budesonide [Pulmicort] 0.5 mg INHALATION RT-BID PRN 09/18/22 [History] Multivit-Min/FA/Lycopen/Lutein [Centrum Silver Tablet] 1 tab PO DAILY 09/18/22 [History] carvediloL [Coreg] 3.125 mg PO BID 09/18/22 [History] HYDROcodone/APAP 5-325MG [[place] 5] 1 each PO Q8HR PRN #21 tab 09/20/22 [Rx] Follow up Appointment(s)/Referral(s): Brittany Solis MD [Primary Care Provider] - 1-2 days Bryan Jara PAC [PHYSICIAN [employer]PERATOR] - 2 Weeks (Patient may follow-up with Bryan Jara PA-C or Dr. Bari Prasad at [facility] in 2-3 weeks following discharge. ) Activity/Diet/Wound Care/Special Instructions: 1. Limited weightbearing on right lower extremity with the assistance of a walker 2. Patient is encouraged to work with physical therapy to increase her mobility and ambulation 3. Take medications as prescribed Discharge Disposition: TRANSFER TO SNF/ECF
[2022-09-20] MEDS: BALSALAZIDE DISODIUM 750 MG CAPSULE PO SCH (09:07)
[2022-09-20] MEDS: ASPIRIN 81 MG PO SCH (09:07)
[2022-09-20] MEDS: ATORVASTATIN 10 MG TAB PO SCH (09:07)
[2022-09-20] MEDS: LOSARTAN 25 MG TAB PO SCH (09:07)
--- NOTE | 2022-09-20 10:52 | P.PN ---
Subjective Progress Note Date: 09/20/22 Marilyn Jalloh, is a 82-year-old female patient of Dr. Solis who presented to ER after sustaining a fall. Patient reports that she tripped over her cat denies loss of consciousness or hitting her head. Denies any precepting events leading fall. Patient has past medical history of coronary artery disease, COPD, GERD, hypertension, cardiomyopathy, ulcerative colitis and ex-smoker. Hip x-ray completed showing avulsion of the posterior superior aspect of the greater trochanter right hip. Fracture suspected at the greater trochanter. 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 Patient has been admitted to orthopedic services. Due to patient's cardiac history will order cardiac clearance prior to any surgical procedure. On 09/19/2022 patient was seen and examined on the medical floor she is alert and oriented 3 in no apparent distress there is no fever or chills no headache or dizziness no chest pain no shortness of breath no cough no nausea or vomiting no abdominal pain no diarrhea and no urinary symptoms. She was reevaluated by orthopedic surgery today, no surgical intervention is recommended at this time, plan is to for transfer to rehab tomorrow. On 09/20/2018 patient is alert and oriented 3. Patient to be DC'd to rehab facility today per orthopedic services. Patient DC'd on [place] per orthopedic services. At this time patient denies chest pain or shortness of breath. Patient denies nausea vomiting or diarrhea. Patient denies any urinary burning or frequency Objective - Vital Signs Vital signs: Vital Signs Temp 98.4 F 09/20/22 07:31 Pulse 72 09/20/22 09:03 Resp 17 09/20/22 07:31 BP 109/70 09/20/22 07:31 Pulse Ox 97 09/20/22 08:50 FiO2 21 09/19/22 20:05 Intake & Output 09/19/22 09/20/22 09/20/22 18:59 06:59 18:59 Intake Total 430 250 Balance 430 250 Intake: Oral 430 250 Other: # Voids 3 6 # Bowel Movements 1 - Exam In general patient is alert and oriented x 3 in no distress HEENT head normocephalic and atraumatic Neck is supple no JVD no goiter no lymphadenopathy no carotid bruit Chest examination is clear to auscultation no crackles no wheezing Cardiac exam reveals regular heart sounds S1 and S2 no gallops no murmurs Abdomen is soft nontender no organomegaly with normal bowel sounds Extremity exam reveals no edema no cyanosis or clubbing Neurological examination reveals no gross focal deficits - Labs CBC & Chem 7: 09/19/22 05:29 09/20/22 06:16 Labs: Abnormal Lab Results - Last 24 Hours (Table) 09/20/22 Range/Units 06:16 Sodium 135 L (137-145) mmol/L Calcium 8.2 L (8.4-10.2) mg/dL Total Protein 5.3 L (6.3-8.2) g/dL Albumin 3.0 L (3.5-5.0) g/dL Assessment and Plan Assessment: 1. Status post fall and right hip fracture 2. Injury to right hand 3. History of ulcerative colitis 4. History of cardiomyopathy 5. History of coronary artery disease 6. History of essential hypertension 7. History of hyperlipidemia 8. History of COPD 9. Previous smoker Thank you for this consultation we'll continue to follow patient closely throughout stay Discharge today to rehab facility Repeat labs ordered
[2022-09-20 11:58] VITALS: PULSE 80
[2022-09-20 12:10] LABS: Basophils # (A) 0.03 X 10*3/uL (0.00-0.10); Basophils % (A) 0.5 %; Eosinophils # (A) 0.13 X 10*3/uL (0.04-0.35); Eosinophils % (A) 2.2 %; HCT 31.1 % (37.2-46.3); HGB 10.5 g/dL (12.0-15.0); Immature Grans, Automated 0.5 %; Lymphocytes # (A) 1.16 X 10*3/uL (0.90-5.00); Lymphocytes % (A) 19.4 %; MCHC 33.8 g/dL (32.0-37.0); MCV 91.7 fL (80.0-97.0); Mean Platelet Volume 9.4 fL (9.5-12.2); Monocytes % (A) 8.3 %; NRBC Per 100 WBC 0 /100 WBCS (0.0-0.0); Neutrophils # (A) 4.14 X 10*3/uL (1.80-7.70); Neutrophils % (A) 69.1 %; Platelet Count 308 X 10*3/uL (140-440); RBC 3.39 X 10*6/uL (4.10-5.20); RDW 15.7 % (11.5-14.5); WBC 5.99 X 10*3/uL (4.50-10.00)
== END 2022-09-20 13:11 | DRG 536 ==
LOC: EC 06:41 → 4SSUR 11:18
PROVIDERS: ADMIT Orthopaedic Surgery Orthopaedic Surgery of the Spine; ATTEND Orthopaedic Surgery Orthopaedic Surgery of the Spine
DX: S72.114A Nondisplaced fracture of greater trochanter of right femur, initial encounter for closed fracture (principal); I42.9 Cardiomyopathy, unspecified; K51.90 Ulcerative colitis, unspecified, without complications; Z91.81 History of falling; Y93.K1 Activity, walking an animal; Z20.822 Contact with and (suspected) exposure to COVID-19; Y92.009 Unspecified place in unspecified non-institutional (private) residence as the place of occurrence of the external cause; E78.5 Hyperlipidemia, unspecified; I10 Essential (primary) hypertension; I25.10 Atherosclerotic heart disease of native coronary artery without angina pectoris; I25.2 Old myocardial infarction; J44.9 Chronic obstructive pulmonary disease, unspecified; W01.0XXA Fall on same level from slipping, tripping and stumbling without subsequent striking against object, initial encounter; Z79.51 Long term (current) use of inhaled steroids; Z79.82 Long term (current) use of aspirin; Z79.899 Other long term (current) drug therapy; Z82.49 Family history of ischemic heart disease and other diseases of the circulatory system; Z87.891 Personal history of nicotine dependence; Z88.2 Allergy status to sulfonamides; Z88.8 Allergy status to other drugs, medicaments and biological substances; Z87.19 Personal history of other diseases of the digestive system; Z98.51 Tubal ligation status
CPT/HCPCS: 73502; 80053; 85025; 85610; 85730; 87635; 94640; 94760